=== PATIENT | male | born 1955 ===

== ENCOUNTER 2022-12-30 19:27 | Emergency (ER) | payer MEDICARE, OTHER, SELFPAY ==
[2022-12-30] MEDS: Dextrose 25 % 2.5 GM/10 ML SYRINGE 5 GM IVPUSH ×2 (19:33→20:44)
[2022-12-30 19:36] VITALS: BP 160/80; BP 165/76; PULSE 68; PULSE 78; RESP 17; TEMP 35; O2SAT 95; O2SAT 96; BMI 30.5
--- NOTE | 2022-12-30 19:41 | ECG_ITS ---
Test Reason : HYPOGLYCEMIA Blood Pressure : / mmHG Vent. Rate : 064 BPM Atrial Rate : 064 BPM P-R Int : 180 ms QRS Dur : 094 ms QT Int : 448 ms P-R-T Axes : 083 040 065 degrees QTc Int : 462 ms Normal sinus rhythm Normal ECG When compared with ECG of 30-OCT-2016 20:20, No significant change was found Referred By: Humza Hill Electronically Signed By:SAMEER PATEL MD
--- NOTE | 2022-12-30 19:42 | MHC.EDTECH ---
This Tech Assumed care of this PT @1926. EKG done and pt placed on radiation monitor. Pt changed into hospital gown. Pt was hypoglycemic upon arrival will check POC Q15 per P.A. next check @1951
--- NOTE | 2022-12-30 19:45 | ED_ITS ---
HPI - General Adult General Chief complaint: Altered Mental Status Stated complaint: Lethargic/ Low BS Time Seen by Provider: 12/30/22 20:18 Source: patient, RN notes reviewed and old records reviewed Mode of arrival: EMS Limitations: other (Patient initially unresponsive but responded to insulin D25) History of Present Illness HPI narrative: Patient arrives via EMS. Apparently he went to [employer] and then was found unresponsive on the floor. The patient arrives diaphoretic, point of care glucose of 35 Vital signs otherwise stable. Patient immediately responded to IV dextrose, D25 He reports the last thing he remembers was driving to [employer] He reports feeling ?tired. He denies any pain Related Data Allergies Allergy/AdvReac Type Severity Reaction Status Date / Time No Known Allergies Allergy Unverified 12/12/20 08:59 Review of Systems Constitutional: Constitutional: Denies chills, Denies fever(s) and Denies headache(s) ENT: Denies headache(s) Cardiovascular: Cardiovascular: Denies chest pain and Denies dyspnea Respiratory: Respiratory: Denies dyspnea Gastrointestinal: Gastrointestinal: Denies abdominal pain, Denies nausea and Denies vomiting Neurologic: Denies headache(s) [facility] Social History Social History (System 12/12/20 @ 08:59 by Lalitha Page) Smoked in Last 30 Days: No Use of substances other than those prescribed or required for medical reasons: No Advance Directives: No Advance Directives Information Provided: No Physical Exam ED Vital Signs: Vital Signs - 24 hr 12/30/22 19:36 12/30/22 20:41 12/30/22 20:58 Temperature 95.0 F L 97.5 F Pulse Rate 68 82 Respiratory Rate 17 16 Blood Pressure 165/76 H 189/75 H Pulse Oximetry 95 97 Oxygen Delivery Method Room Air Room Air BMI result Body Mass Index 30.5 Const General: healthy appearing, comfortable, no acute distress, alert and awake Nutritional Appearance: well nourished Orientation/consciousness: patient oriented x3 HENMT Head: Yes normocephalic and Yes atraumatic Eyes Eyelids: Yes eyelids normal Conjunctivae: conjunctivae normal Sclerae: sclerae normal Corneas: corneas normal Pupils: Equal, round and reactive pupils present EOM: EOMs intact bilaterally Neck Neck: Yes full ROM Resp Effort & Inspection: normal respiratory effort, able to speak in complete sentences, no audible wheezes and not labored Auscultation: clear to auscultation bilaterally Cardio Rate: regular rate Rhythm: regular rhythm GI Inspection: No distended Palpation (GI): Soft to palpation, not firm, nontender, no guarding and not rigid Auscultation: normoactive bowel sounds Skin General skin exam: no rashes or lesions noted and elasticity normal Neuro General: patient oriented x3 Cranial nerves: Yes CN's II-XII intact bilaterally, Yes Equal, round and reactive pupils present and Yes Bilaterally intact EOM present Cognition (Neuro): normal cognition Extrem Other: Moving all extremities well without any obvious deformities Course Course Course Narrative: 11:07 p.m. Patient's blood sugar now holding steady over 200, a increased from 195. The patient is stable for discharge. I would rather the patient go to sleep tonight slightly hyperglycemic then attempted to get his sugar back down to around 100. I advised the patient to not give himself any more insulin tonight the resume his normal scheduled tomorrow Reevaluation(s) Reevaluation #1: Patient's glucose was checked every 15 minutes initially and was 15 and then down to 86. Will again check in 15 minutes. The patient may require more dextrose Time: 20:15 Reevaluation #2: Repeat glucose found down to 50, he was given another 5 g of D25 Time: 20:39 Reevaluation #3: Patient re-evaluated, he is sitting up on reports feeling much better. He states that he went to dinner prior to going [employer]. He states that he forgot his testing CT with him so he believes he gave himself too much insulin as he was estimating why his sugar level was. Will check his blood sugar 1 more time an hour, and if he is holding he will be safe for discharge Time: 22:03 Medications Administered Discontinued Medications Generic Name Dose Route Start Last Admin Trade Name Lin PRN Reason Stop Dose Admin Dextrose 5 gm 12/30/22 19:33 12/30/22 19:33 Dextrose 25 % 2.5 Gm/10 Ml Syringe IVPUSH 12/30/22 19:34 5 gm ONCE ONE Administration Dextrose 5 gm 12/30/22 20:38 12/30/22 20:44 Dextrose 25 % 2.5 Gm/10 Ml Syringe IVPUSH 12/30/22 20:39 5 gm ONCE ONE Administration Medical Decision Making Medical Decision Making MDM Narrative: Though initially unresponsive, the patient responded quickly to insulin D25. Apparently there is a shortage of D50. I ordered D25, 5g. The patient's glucose on arrival was 35 and he was completely unresponsive. He awaken after few minutes and was able to confirm his 9 explain that he feels tired. He remembers driving to [employer] but nothing else afterwards. He denies any pain at this time. Will check basic labs, EKG is nonischemic. Will check point of care glucose acute 15 minutes until he is stabilized. I had suspended his insulin delivery while the patient was still unresponsive. I did not disconnect anything from his monitor. I explained to the patient I did suspend his de livery and did not recommend turning back on until tomorrow. I asked him to make sure it is functioning properly before turning it back on Differential Diagnosis Hypoglycemia CVA Syncope Arrhythmia Intracranial hemorrhage Lab Data 12/30/22 19:42 12/30/22 19:42 Labs: Lab Results 12/30/22 12/30/22 12/30/22 Range/Units 19:37 19:42 19:42 WBC 8.0 (4.8-10.8) X10*3/uL RBC 4.44 L (4.60-5.80) X10*6/uL Hgb 14.0 (14.0-18.0) g/dl Hct 41.0 L (42.0-52.0) % MCV 92.3 (80.0-98.0) fL MCH 31.5 (27.0-33.0) pg MCHC 34.1 (31.0-36.0) g/dl RDW 13.1 (11.0-16.0) % Plt Count 297 (160-400) X10*3/uL MPV 9.5 (9.4-12.4) fL Immature Gran % (Auto) 0.1 (0.0-0.4) % Neut % (Auto) 45.3 (45-73) % Lymph % (Auto) 37.7 (20-40) % [place] % (Auto) 11.1 H (2-11) % Eos % (Auto) 4.5 H (0-4) % Baso % (Auto) 1.3 (0-2) % Lymph # (Auto) 3.0 (1.2-4.9) X10*3/uL [place] # (Auto) 0.9 (0.1-1.2) X10*3/uL Eos # (Auto) 0.4 (0.0-0.4) X10*3/uL Baso # (Auto) 0.1 (0.0-0.2) X10*3/uL Abs Immat Gran (auto) 0.01 (0.00-0.03) X10*3/uL Absolute Neuts (auto) 3.6 (2.0-8.3) x10*3/uL Absolute Nucleated RBC 0.000 (0.0-0.012) X10*3/uL Nucleated RBC % (auto) 0.0 (0.0-0.2) /100WBC Sodium 141 (135-145) mmol/L Potassium 3.7 (3.3-5.1) mmol/L Chloride 103 (96-108) mmol/L Carbon Dioxide 30 H (22-29) mmol/L Anion Gap 12 (12-20) BUN 14 (9-16) mg/dL Creatinine 1.25 (0.5-1.4) mg/dL Estim Creat Clear Calc 66.8 Estimated GFR 58 POC Glucose 202 H (60-115) mg/dL Random Glucose 159 H (60-115) mg/dL Calcium 9.0 (8.4-10.2) mg/dL Total Bilirubin 0.6 (0.0-1.0) mg/dL AST 21 (5-37) U/L ALT 20 (0-40) U/L Alkaline Phosphatase 68 (39-117) U/L Total Protein 7.0 (6.5-8.0) g/dL Albumin 4.1 (3.5-5.0) g/dL Urine Color Urine Appearance Urine pH (5.0-9.0) Ur Specific [place] (1.005-1.025) Urine Protein (Neg-Trace) mg/dL Urine Glucose (UA) (Negative) mg/dL Urine Ketones (Negative) mg/dL Urine Blood (Negative) Urine Nitrite (Negative) Ur Leukocyte Esterase (Negative) Urine RBC (0-2) /HPF Urine WBC (0-5) /HPF Ur Squamous Epith Cells (0-2) /HPF Urine Bacteria (None Seen) Hyaline Casts (0-2) /LPF 12/30/22 12/30/22 12/30/22 Range/Units 19:53 20:11 20:34 WBC (4.8-10.8) X10*3/uL RBC (4.60-5.80) X10*6/uL Hgb (14.0-18.0) g/dl Hct (42.0-52.0) % MCV (80.0-98.0) fL MCH (27.0-33.0) pg MCHC (31.0-36.0) g/dl RDW (11.0-16.0) % Plt Count (160-400) X10*3/uL MPV (9.4-12.4) fL Immature Gran % (Auto) (0.0-0.4) % Neut % (Auto) (45-73) % Lymph % (Auto) (20-40) % [place] % (Auto) (2-11) % Eos % (Auto) (0-4) % Baso % (Auto) (0-2) % Lymph # (Auto) (1.2-4.9) X10*3/uL [place] # (Auto) (0.1-1.2) X10*3/uL Eos # (Auto) (0.0-0.4) X10*3/uL Baso # (Auto) (0.0-0.2) X10*3/uL Abs Immat Gran (auto) (0.00-0.03) X10*3/uL Absolute Neuts (auto) (2.0-8.3) x10*3/uL Absolute Nucleated RBC (0.0-0.012) X10*3/uL Nucleated RBC % (auto) (0.0-0.2) /100WBC Sodium (135-145) mmol/L Potassium (3.3-5.1) mmol/L Chloride (96-108) mmol/L Carbon Dioxide (22-29) mmol/L Anion Gap (12-20) BUN (9-16) mg/dL Creatinine (0.5-1.4) mg/dL Estim Creat Clear Calc Estimated GFR POC Glucose 155 H 86 51 L* (60-115) mg/dL Random Glucose (60-115) mg/dL Calcium (8.4-10.2) mg/dL Total Bilirubin (0.0-1.0) mg/dL AST (5-37) U/L ALT (0-40) U/L Alkaline Phosphatase (39-117) U/L Total Protein (6.5-8.0) g/dL Albumin (3.5-5.0) g/dL Urine Color Urine Appearance Urine pH (5.0-9.0) Ur Specific [place] (1.005-1.025) Urine Protein (Neg-Trace) mg/dL Urine Glucose (UA) (Negative) mg/dL Urine Ketones (Negative) mg/dL Urine Blood (Negative) Urine Nitrite (Negative) Ur Leukocyte Esterase (Negative) Urine RBC (0-2) /HPF Urine WBC (0-5) /HPF Ur Squamous Epith Cells (0-2) /HPF Urine Bacteria (None Seen) Hyaline Casts (0-2) /LPF 12/30/22 12/30/22 12/30/22 Range/Units 20:55 21:16 21:33 WBC (4.8-10.8) X10*3/uL RBC (4.60-5.80) X10*6/uL Hgb (14.0-18.0) g/dl Hct (42.0-52.0) % MCV (80.0-98.0) fL MCH (27.0-33.0) pg MCHC (31.0-36.0) g/dl RDW (11.0-16.0) % Plt Count (160-400) X10*3/uL MPV (9.4-12.4) fL Immature Gran % (Auto) (0.0-0.4) % Neut % (Auto) (45-73) % Lymph % (Auto) (20-40) % [place] % (Auto) (2-11) % Eos % (Auto) (0-4) % Baso % (Auto) (0-2) % Lymph # (Auto) (1.2-4.9) X10*3/uL [place] # (Auto) (0.1-1.2) X10*3/uL Eos # (Auto) (0.0-0.4) X10*3/uL Baso # (Auto) (0.0-0.2) X10*3/uL Abs Immat Gran (auto) (0.00-0.03) X10*3/uL Absolute Neuts (auto) (2.0-8.3) x10*3/uL Absolute Nucleated RBC (0.0-0.012) X10*3/uL Nucleated RBC % (auto) (0.0-0.2) /100WBC Sodium (135-145) mmol/L Potassium (3.3-5.1) mmol/L Chloride (96-108) mmol/L Carbon Dioxide (22-29) mmol/L Anion Gap (12-20) BUN (9-16) mg/dL Creatinine (0.5-1.4) mg/dL Estim Creat Clear Calc Estimated GFR POC Glucose 95 116 H (60-115) mg/dL Random Glucose (60-115) mg/dL Calcium (8.4-10.2) mg/dL Total Bilirubin (0.0-1.0) mg/dL AST (5-37) U/L ALT (0-40) U/L Alkaline Phosphatase (39-117) U/L Total Protein (6.5-8.0) g/dL Albumin (3.5-5.0) g/dL Urine Color Yellow Urine Appearance Clear Urine pH 8.0 (5.0-9.0) Ur Specific [place] 1.015 (1.005-1.025) Urine Protein 300 (3+) H (Neg-Trace) mg/dL Urine Glucose (UA) Negative (Negative) mg/dL Urine Ketones Negative (Negative) mg/dL Urine Blood Negative (Negative) Urine Nitrite Negative (Negative) Ur Leukocyte Esterase Negative (Negative) Urine RBC 0-2 (0-2) /HPF Urine WBC 0-5 (0-5) /HPF Ur Squamous Epith Cells 0-2 (0-2) /HPF Urine Bacteria None Seen (None Seen) Hyaline Casts 0-2 (0-2) /LPF 12/30/22 Range/Units 21:58 WBC (4.8-10.8) X10*3/uL RBC (4.60-5.80) X10*6/uL Hgb (14.0-18.0) g/dl Hct (42.0-52.0) % MCV (80.0-98.0) fL MCH (27.0-33.0) pg MCHC (31.0-36.0) g/dl RDW (11.0-16.0) % Plt Count (160-400) X10*3/uL MPV (9.4-12.4) fL Immature Gran % (Auto) (0.0-0.4) % Neut % (Auto) (45-73) % Lymph % (Auto) (20-40) % [place] % (Auto) (2-11) % Eos % (Auto) (0-4) % Baso % (Auto) (0-2) % Lymph # (Auto) (1.2-4.9) X10*3/uL [place] # (Auto) (0.1-1.2) X10*3/uL Eos # (Auto) (0.0-0.4) X10*3/uL Baso # (Auto) (0.0-0.2) X10*3/uL Abs Immat Gran (auto) (0.00-0.03) X10*3/uL Absolute Neuts (auto) (2.0-8.3) x10*3/uL Absolute Nucleated RBC (0.0-0.012) X10*3/uL Nucleated RBC % (auto) (0.0-0.2) /100WBC Sodium (135-145) mmol/L Potassium (3.3-5.1) mmol/L Chloride (96-108) mmol/L Carbon Dioxide (22-29) mmol/L Anion Gap (12-20) BUN (9-16) mg/dL Creatinine (0.5-1.4) mg/dL Estim Creat Clear Calc Estimated GFR POC Glucose 195 H (60-115) mg/dL Random Glucose (60-115) mg/dL Calcium (8.4-10.2) mg/dL Total Bilirubin (0.0-1.0) mg/dL AST (5-37) U/L ALT (0-40) U/L Alkaline Phosphatase (39-117) U/L Total Protein (6.5-8.0) g/dL Albumin (3.5-5.0) g/dL Urine Color Urine Appearance Urine pH (5.0-9.0) Ur Specific [place] (1.005-1.025) Urine Protein (Neg-Trace) mg/dL Urine Glucose (UA) (Negative) mg/dL Urine Ketones (Negative) mg/dL Urine Blood (Negative) Urine Nitrite (Negative) Ur Leukocyte Esterase (Negative) Urine RBC (0-2) /HPF Urine WBC (0-5) /HPF Ur Squamous Epith Cells (0-2) /HPF Urine Bacteria (None Seen) Hyaline Casts (0-2) /LPF Discharge Plan Discharge Clinical Impression: Hypoglycemia Patient Disposition: Home, Self-Care Instructions: Hypoglycemia in a Person with Diabetes (ED), What to Do if Your Blood Sugar is Low (ED) Additional Instructions: It is likely that you gave yourself too much insulin by accident Try to make sure your pump is working properly before you reconnect it Check your blood sugar right before bed
[2022-12-30 19:46] LABS: MANUAL DIFF FLAG NO
[2022-12-30 19:47] LABS: Basophils Absolute Auto 0.1 X10*3/uL (0.0-0.2); Basophils Percent Auto 1.3 % (0-2); Eosinophils Absolute Auto 0.4 X10*3/uL (0.0-0.4); Eosinophils Percent Auto 4.5 % (0-4); Imm Gran Abs Auto 0.01 X10*3/uL (0.00-0.03); Imm Gran Pct Auto 0.1 % (0.0-0.4); Lymphocytes Percent Auto 37.7 % (20-40); Mean Corpuscular HGB Conc 34.1 g/dl (31.0-36.0); Mean Corpuscular Hemoglobin 31.5 pg (27.0-33.0); Mean Corpuscular Volume 92.3 fL (80.0-98.0); Mean Platelet Volume 9.5 fL (9.4-12.4); Monocytes Absolute Auto 0.9 X10*3/uL (0.1-1.2); Monocytes Percent Auto 11.1 % (2-11); Neutrophils Absolute Auto 3.6 x10*3/uL (2.0-8.3); Neutrophils Percent Auto 45.3 % (45-73); Platelet Count 297 X10*3/uL (160-400); Red Blood Count 4.44 X10*6/uL (4.60-5.80); Red Cell Distribution Width 13.1 % (11.0-16.0)
[2022-12-30 19:59] LABS: Glucose, Whole Blood 202 mg/dL (60-115)
[2022-12-30 19:59] LABS: Glucose, Whole Blood 155 mg/dL (60-115)
--- NOTE | 2022-12-30 20:00 | PC.NURSE ---
this rn assumed care of pt @ 1936. rectal temp 95.0 pt placed on bear hugger. pt medicated according to oct. bilateral IV 18g R AC, 20g L AC. pt awake at this time
[2022-12-30 20:07] LABS: Alanine Aminotransferase 20 U/L (0-40); Albumin Level 4.1 g/dL (3.5-5.0); Alkaline Phosphatase 68 U/L (39-117); Anion Gap 12 (12-20); Aspartate Amino Transferase 21 U/L (5-37); Bilirubin Total 0.6 mg/dL (0.0-1.0); Blood Urea Nitrogen 14 mg/dL (9-16); Carbon Dioxide 30 mmol/L (22-29); Chloride 103 mmol/L (96-108); Creatinine Clr Calc Pharmacy 66.8; Estimated Glomerular Filt Rate 58; Glucose Random 159 mg/dL (60-115); Potassium 3.7 mmol/L (3.3-5.1); Sodium 141 mmol/L (135-145)
[2022-12-30 20:15] LABS: Glucose, Whole Blood 86 mg/dL (60-115)
[2022-12-30 20:41] VITALS: TEMP 36.4
[2022-12-30 20:52] LABS: Glucose, Whole Blood 51 mg/dL (60-115)
--- NOTE | 2022-12-30 20:56 | PC.NURSE ---
@ 2033 poc 51. ariel carpio made aware. pt given 5g ivp dextrose per ariel carpio orders. pt awake at this time. pt reports feeling improvement. poc q15 minutes per ariel carpio
[2022-12-30 20:58] VITALS: BP 189/75; PULSE 82; RESP 16; O2SAT 97
[2022-12-30 21:02] LABS: Glucose, Whole Blood 95 mg/dL (60-115)
[2022-12-30 21:38] LABS: Glucose, Whole Blood 116 mg/dL (60-115)
[2022-12-30 21:41] LABS: Appearance Urine Clear; Color Urine Yellow; Glucose Urine UA Negative (Negative); Leukocyte Esterase Urine Negative (Negative); Nitrite Urine Negative (Negative); Specific Gravity - Urine 1.015 (1.005-1.025); UMIC TRIGGER UACC YES; Urine Blood Negative (Negative); Urine Ketones Negative (Negative); Urine Protein 300 (3+) mg/dL (Neg-Trace)
[2022-12-30 21:43] LABS: Bacteria Urine None Seen (None Seen); Hyaline Casts Urine 0-2 /LPF (0-2); RBC Urine 0-2 /HPF (0-2); Squamous Epithelial Cell Urine 0-2 /HPF (0-2); WBC Urine 0-5 /HPF (0-5)
[2022-12-30 22:02] LABS: Glucose, Whole Blood 195 mg/dL (60-115)
--- NOTE | 2022-12-30 22:35 | PC.NURSE ---
pt a+o x4. pt calm and cooperative. resting on stretcher. disposition pending
[2022-12-30 23:07] LABS: Glucose, Whole Blood 228 mg/dL (60-115)
[2022-12-30 23:29] VITALS: BP 168/57; PULSE 97; RESP 16; TEMP 36.6; O2SAT 98
--- NOTE | 2022-12-30 23:50 | PC.NURSE ---
iv removed at discharge. vss. pt ambulatory at discharge. pt discharged with family member. pt provided with discharge packet. pt verbalized understanding of discharge plan
[2023-01-02 13:22] LABS: Glucose, Whole Blood 35 mg/dL (60-115)
== END 2022-12-30 23:50 | disposition home or self-care (01) ==
PROVIDERS: Physician Assistant; Emergency Provider Emergency Medicine; PCP Internal Medicine
DX: E11.649 Type 2 diabetes mellitus with hypoglycemia without coma (principal); R41.82 Altered mental status, unspecified; R07.89 Other chest pain; Z79.899 Other long term (current) drug therapy
CPT/HCPCS: 36415; 80053; 81001; 82947; 85025; 93005; 99284

== ENCOUNTER 2023-05-28 21:08 | Emergency (ER) | payer MEDICARE, OTHER, SELFPAY ==
--- NOTE | 2023-05-28 | ECG_ITS ---
Test Reason : NEAR SYNCOPE Blood Pressure : / mmHG Vent. Rate : 078 BPM Atrial Rate : 078 BPM P-R Int : 176 ms QRS Dur : 082 ms QT Int : 416 ms P-R-T Axes : 082 038 056 degrees QTc Int : 474 ms Normal sinus rhythm Normal ECG When compared with ECG of 30-DEC-2022 19:29, No significant change was found Referred By: Generic ED Physician Electronically Signed By:OBIE DUNAWAY MD
--- NOTE | 2023-05-28 21:18 | ED_ITS ---
HPI - Altered Mental Status General Chief Complaint: Dizziness Stated Complaint: AMS/Hypoglycemia Time Seen by Provider: 05/28/23 21:18 Source: patient Mode of arrival: ambulatory Limitations: no limitations History of Present Illness HPI narrative: Patient diabetic on insulin pump at 14:00 blood sugar was 128 lately patient been having less requirement of insulin as in the past no fever no chills was going for dinner with his friends supposed to have 18:00 got late for dinner was confused at the time of dinner friend gave him sweet candies and POC was 90 patient back to normal no chest pain or palpitation no injury no fever no chills no open wound no seizures Related Data Allergies Allergy/AdvReac Type Severity Reaction Status Date / Time No Known Allergies Allergy Unverified 12/12/20 08:59 Review of Systems 2 Review of Systems: Yes all other systems are reviewed and are negative [facility] Social History Social History (System 12/12/20 @ 08:59 by Lalitha Page) Alcohol intake: current Alcohol intake frequency: holidays/special occasions only Smoked in Last 30 Days: No Use of substances other than those prescribed or required for medical reasons: No Advance Directives: No Advance Directives Information Provided: No Physical Exam ED Vital Signs: Vital Signs - 24 hr 05/28/23 21:22 05/28/23 21:27 Temperature 97.7 F 97.7 F Pulse Rate 77 77 Respiratory Rate 22 H 19 Blood Pressure 193/77 H 193/70 H Pulse Oximetry 96 96 Oxygen Delivery Method Room Air Room Air BMI result Body Mass Index 30.1 Appearance: Alert. Oriented X3. No acute distress. Eyes: PERRLA, No Nystagmus ENT: Pharynx normal. Oral Mucosa moist Neck: Normal inspection. Neck supple. CVS: Normal heart rate and rhythm. Pulses normal. Respiratory: No respiratory distress. Equal air entry bilateral, no wheezing/rales/rhonchi Abdomen: Soft and nontender. Bowel sounds are present, no mass palpable, no CVA tenderness Skin: Skin warm and dry. Normal skin color. Normal skin turgor. Extremities: No lower extremity edema. No calf tenderness Neuro: Oriented X 3. No motor deficit. No sensory deficit.No cerebellar signs , cranial nerves II-XII intact Medical Decision Making Medical Decision Making MDM Narrative: Patient with transient hypoglycemia likely from decreased food intake on insulin pump patient sensorium improved no signs of significant infection noticed taking p.o. fluids discharge patient home PC was 155 Differential Diagnosis Differential Diagnoses: The differential diagnosis associated with the presentation includes Hypoglycemia secondary to insulin/infection Lab Data [facility] Lab Attestation statement: I reviewed the patient's lab results. 05/28/23 21:44 05/28/23 21:44 Labs: Lab Results 05/28/23 05/28/23 Range/Units 21:25 21:44 WBC 11.6 H (4.8-10.8) X10*3/uL RBC 4.45 L (4.60-5.80) X10*6/uL Hgb 13.9 L (14.0-18.0) g/dl Hct 41.2 L (42.0-52.0) % MCV 92.6 (80.0-98.0) fL MCH 31.2 (27.0-33.0) pg MCHC 33.7 (31.0-36.0) g/dl RDW 13.3 (11.0-16.0) % Plt Count 274 (160-400) X10*3/uL MPV 8.8 L (9.4-12.4) fL Absolute Nucleated RBC 0.000 (0.0-0.012) X10*3/uL Nucleated RBC % (auto) 0.0 (0.0-0.2) /100WBC Sodium 143 (135-145) mmol/L Potassium 4.4 (3.3-5.1) mmol/L Chloride 102 (96-108) mmol/L Carbon Dioxide 30 H (22-29) mmol/L Anion Gap 15 (12-20) BUN 18 H (9-16) mg/dL Creatinine 0.96 (0.5-1.4) mg/dL Estim Creat Clear Calc 86.4 Estimated GFR > 60 POC Glucose 128 H (60-115) mg/dL Random Glucose 155 H (60-115) mg/dL Calcium 9.5 (8.4-10.2) mg/dL Total Bilirubin 0.7 (0.0-1.0) mg/dL AST 23 (5-37) U/L ALT 20 (0-40) U/L Alkaline Phosphatase 66 (39-117) U/L Troponin I High Sens 8.4 (<3.5-35.0) ng/L Total Protein 7.7 (6.5-8.0) g/dL Albumin 4.3 (3.5-5.0) g/dL Urine Color Yellow Urine Appearance Clear Urine pH 6.5 (5.0-9.0) Ur Specific [place] 1.020 (1.005-1.025) Urine Protein 300 (3+) H (Neg-Trace) mg/dL Urine Glucose (UA) Negative (Negative) mg/dL Urine Ketones Negative (Negative) mg/dL Urine Blood Negative (Negative) Urine Nitrite Negative (Negative) Ur Leukocyte Esterase Negative (Negative) Urine RBC 3-5 H (0-2) /HPF Urine WBC 0-5 (0-5) /HPF Ur Squamous Epith Cells 3-5 (0-2) /HPF Urine Bacteria None Seen (None Seen) Hyaline Casts 6-10 (0-2) /LPF Independent Interpretation I performed an independent interpretation of an: EKG Interpretation: Normal sinus rhythm heart rate 78 beats per minute normal intervals normal axis no acute STT wave changes Discharge Plan Discharge Clinical Impression: Hypoglycemia associated with diabetes Patient Disposition: Home, Self-Care Instructions: Hypoglycemia in a Person with Diabetes (ED) Additional Instructions: Eat frequent meals Check your blood sugar more often Follow with PCP if any concerns Interventions: ED Discharge Assessment Last Done: 05/28/23 23:26 Discharge Date/Time: 05/28/23 23:26
[2023-05-28 21:22] VITALS: BP 193/77; PULSE 77; RESP 22; TEMP 36.5; O2SAT 96; BMI 30.1
[2023-05-28 21:27] VITALS: BP 193/70; PULSE 77; RESP 19; TEMP 36.5; O2SAT 96
[2023-05-28 21:48] LABS: Glucose, Whole Blood 128 mg/dL (60-115)
[2023-05-28 21:50] LABS: Hematocrit 41.2 % (42.0-52.0); Hemoglobin 13.9 g/dl (14.0-18.0); Mean Corpuscular HGB Conc 33.7 g/dl (31.0-36.0); Mean Corpuscular Hemoglobin 31.2 pg (27.0-33.0); Mean Corpuscular Volume 92.6 fL (80.0-98.0); Mean Platelet Volume 8.8 fL (9.4-12.4); Platelet Count 274 X10*3/uL (160-400); Red Blood Count 4.45 X10*6/uL (4.60-5.80); Red Cell Distribution Width 13.3 % (11.0-16.0); White Blood Count 11.6 X10*3/uL (4.8-10.8)
[2023-05-28 21:52] LABS: Appearance Urine Clear; Color Urine Yellow; Glucose Urine UA Negative (Negative); Leukocyte Esterase Urine Negative (Negative); Nitrite Urine Negative (Negative); PH 6.5 (5.0-9.0); UMIC TRIGGER UACC YES; Urine Blood Negative (Negative); Urine Ketones Negative (Negative); Urine Protein 300 (3+) mg/dL (Neg-Trace)
[2023-05-28 21:58] LABS: Bacteria Urine None Seen (None Seen); WBC Urine 0-5 /HPF (0-5)
[2023-05-28 22:05] LABS: Alanine Aminotransferase 20 U/L (0-40); Albumin Level 4.3 g/dL (3.5-5.0); Alkaline Phosphatase 66 U/L (39-117); Anion Gap 15 (12-20); Aspartate Amino Transferase 23 U/L (5-37); Bilirubin Total 0.7 mg/dL (0.0-1.0); Blood Urea Nitrogen 18 mg/dL (9-16); Calcium 9.5 mg/dL (8.4-10.2); Carbon Dioxide 30 mmol/L (22-29); Chloride 102 mmol/L (96-108); Creatinine Clr Calc Pharmacy 86.4; Estimated Glomerular Filt Rate > 60; Glucose Random 155 mg/dL (60-115); Potassium 4.4 mmol/L (3.3-5.1); Sodium 143 mmol/L (135-145); Total Protein 7.7 g/dL (6.5-8.0)
[2023-05-28 22:12] LABS: Troponin-I High Sensitivity 8.4 ng/L (<3.5-35.0)
== END 2023-05-28 23:26 | disposition home or self-care (01) ==
PROVIDERS: Emergency Provider Internal Medicine; PCP Internal Medicine
DX: R41.82 Altered mental status, unspecified (principal); E11.649 Type 2 diabetes mellitus with hypoglycemia without coma; Z96.41 Presence of insulin pump (external) (internal); Z79.4 Long term (current) use of insulin
CPT/HCPCS: 36415; 80053; 81001; 82947; 84484; 85027; 93005; 99283; 99285

== ENCOUNTER 2023-07-04 19:03 | Emergency (ER) | payer MEDICARE, OTHER, SELFPAY ==
[2023-07-04 19:16] VITALS: BP 132/51; PULSE 79; RESP 16; TEMP 37.2; O2SAT 100; BMI 16.9
--- NOTE | 2023-07-04 19:19 | ED.GENADULT ---
HPI - General Adult General Chief complaint: Recheck/Abnormal Lab/Rx Stated complaint: blood sugar of 500 Time Seen by Provider: 07/04/23 23:16 Source: patient Mode of arrival: ambulatory History of Present Illness HPI narrative: 67-year-old male who presents with concerns regarding a high blood sugar level and stating that he is unsure how much insulin he is given himself today. Although triage note states that patient has had vomiting for 3 days patient reports to me that he has had some mild nausea with an isolated episode of vomiting this morning with no other episodes. He does endorse recent vaccination on Saturday or influenza and COVID-19. Patient denies any sore throat/new cough, he denies any GI or symptoms. Related Data Allergies Allergy/AdvReac Type Severity Reaction Status Date / Time No Known Allergies Allergy Unverified 12/12/20 08:59 Review of Systems Review of Systems: Pertinent positives and negatives as stated in HPI [facility] Past Medical History Source: nursing notes reviewed Social History Social History Alcohol intake: current Alcohol intake frequency: does not drink Smoked in Last 30 Days: No Use of substances other than those prescribed or required for medical reasons: No Advance Directives: No Advance Directives Information Provided: Yes Physical Exam ED Vital Signs: Vital Signs - 24 hr 07/04/23 19:16 07/04/23 21:20 Temperature 98.9 F 98.6 F Pulse Rate 79 84 Respiratory Rate 16 16 Blood Pressure 132/51 L 142/53 H Pulse Oximetry 100 98 Oxygen Delivery Method Room Air Room Air BMI result Body Mass Index 16.9 VITAL SIGNS: Reviewed. GENERAL: Well developed, well nourished, in no acute distress. HEAD: Normocephalic/atraumatic EYES: PERRLA, EOMI EARS: Ext canals without abnormality, TMs non-bulging and non-erythematous NOSE: Nares patent bilateral OROPHARYNX: no oral lesions noted, posterior pharynx clear and non-erythematous without noted tonsillar enlargement/erythema/exudates NECK: Supple, no adenopathy LUNGS: Normal breath sounds. No adventitious sounds or accessory muscle use. SpO2<98> CARDIOVASCULAR: Regular rate and rhythm without noted murmurs ABDOMEN: Soft, non-tender, non-distended with bowel sounds. MUSCULOSKELETAL: No tenderness, deformities, or effusions noted on gross inspection. EXTREMITIES: No cyanosis, clubbing or edema. SKIN: Inspection of the skin reveals no rashes NEUROLOGIC: Alert and oriented x 4. Strength and sensation to light touch were grossly intact x 4. Course Course Course Narrative: This is a rapid medical exam: Additional HPI, ROS, PE not included below will be deferred to primary provider. Patient is a 67-year-old male with history of DM presenting to the emergency department with complaint of elevated blood glucose readings today, reports several readings around 500. Attempted to bolus himself with insulin without improvement. Vomited x 3 today, loose stools. Last POC was 528 at 18:20, took more insulin (novolog) at that time. Got flu vaccine a few days ago. Plan: labs, UA, EKG Medications Administered Discontinued Medications Generic Name Dose Route Start Last Admin Trade Name Freq PRN Reason Stop Dose Admin Sodium Chloride 1,000 mls @ 999 mls/hr 07/04/23 23:30 07/05/23 00:06 Ns IV 07/05/23 00:30 Not Given .Q1H1M [facility] Medical Decision Making Medical Decision Making MDM Narrative: 67-year-old male with history and clinical presentation for concerns regarding malfunctioning of his insulin pump. We did review the amount of insulin that he has administered for today and it would appear that his last self administration of a bolus was at 15:21 and was 11 units. Patient states that prior to this he had had a bowl of raising brand serial with orange juice and his sugar was 526 afterwards. Patient states that his basal insulin was changed due to the values consistently being low and he had been seen here previously for low blood sugar level. Patient otherwise appears well although anxious. I reviewed all investigations and hematologic indices are negative for leukocytosis or left shift consistent with clinical findings and history taking which does not indicate any infectious etiology. There is no thrombocytopenia and patient has a stable normocytic anemia. Chemistry indices do not demonstrate an MAKENNA and there is no electrolyte derangement although patient is noted to be hyperglycemic there are no clinical or laboratory findings to suggest DKA or HHS. Patient's repeat glucose as a point of care was noted to be 312. Beta hydroxybutyrate is 0.14. Urinalysis is negative for UTI or hematuria. Viral testing is negative for influenza/RSV/COVID. My interpretation is that patient has reasonable anxiety regarding his blood sugar levels, however there is no evidence that they are significantly deranged. His sugar level is resolving and I feel that he is a safe discharge to home. He was provided with strict return precautions and strongly encouraged to follow-up with his primary care provider as well as his outdoor adventure instructor by calling the office in the morning. Differential Diagnosis Differential Diagnoses: The differential diagnosis associated with the presentation includes Please see the discussion above Admission/Observation Consideration of admission/observation: Escalation of care including admission/observation considered Please see the discussion above Lab Data MDM Lab Attestation statement: I reviewed the patient's lab results. Please see the discussion above 07/04/23 19:41 07/04/23 19:41 Labs: Lab Results 07/04/23 07/04/23 Range/Units 19:41 23:48 WBC 9.0 (4.8-10.8) X10*3/uL RBC 3.89 L (4.60-5.80) X10*6/uL Hgb 12.2 L (14.0-18.0) g/dl Hct 35.2 L (42.0-52.0) % MCV 90.5 (80.0-98.0) fL MCH 31.4 (27.0-33.0) pg MCHC 34.7 (31.0-36.0) g/dl RDW 13.2 (11.0-16.0) % Plt Count 267 (160-400) X10*3/uL MPV 9.4 (9.4-12.4) fL Immature Gran % (Auto) 0.3 (0.0-0.4) % Neut % (Auto) 67.8 (45-73) % Lymph % (Auto) 15.1 L (20-40) % Casey % (Auto) 15.9 H (2-11) % Eos % (Auto) 0.1 (0-4) % Baso % (Auto) 0.8 (0-2) % Lymph # (Auto) 1.4 (1.2-4.9) X10*3/uL Casey # (Auto) 1.4 H (0.1-1.2) X10*3/uL Eos # (Auto) 0.0 (0.0-0.4) X10*3/uL Baso # (Auto) 0.1 (0.0-0.2) X10*3/uL Abs Immat Gran (auto) 0.03 (0.00-0.03) X10*3/uL Absolute Neuts (auto) 6.1 (2.0-8.3) x10*3/uL Absolute Nucleated RBC 0.000 (0.0-0.012) X10*3/uL Nucleated RBC % (auto) 0.0 (0.0-0.2) /100WBC Sodium 135 (135-145) mmol/L Potassium 4.0 (3.3-5.1) mmol/L Chloride 97 (96-108) mmol/L Carbon Dioxide 29 (22-29) mmol/L Anion Gap 13 (12-20) BUN 42 H (9-16) mg/dL Creatinine 1.37 (0.5-1.4) mg/dL Estim Creat Clear Calc 39.6 Estimated GFR 52 POC Glucose 312 H (60-115) mg/dL Random Glucose 461 H* (60-115) mg/dL Calcium 9.2 (8.4-10.2) mg/dL Total Bilirubin 0.9 (0.0-1.0) mg/dL AST 24 (5-37) U/L ALT 18 (0-40) U/L Alkaline Phosphatase 71 (39-117) U/L Total Protein 7.0 (6.5-8.0) g/dL Albumin 3.9 (3.5-5.0) g/dL Beta-Hydroxybutyrate 0.14 (0.02-0.27) mmol/L Influenza Type A (PCR) NEGATIVE (Negative) Influenza Type B (PCR) NEGATIVE (Negative) RSV RNA Qual (PCR) NEGATIVE (Negative) SARS-CoV-2 RNA (RT-PCR) NEGATIVE (Negative) Independent Interpretation I performed an independent interpretation of an: EKG Interpretation: Normal sinus rhythm, HR -80, there is no STEMI, SD/QRS/QTC is within normal limits. Chronic Conditions Patient?s care impacted by: Diabetes Critical Care Time Critical Care Time Critical Care Time: Yes Total Critical Care Time: 30 Attestation: I personally attest to this time spent taking care of the patient. Discharge Plan Discharge Clinical Impression: Hyperglycemia due to diabetes mellitus Patient Disposition: Home, Self-Care Instructions: Diabetic Hyperglycemia (ED) Additional Instructions: 1. Resume all home medications as prescribed. 2. It is going to be very important for you to follow-up with your outdoor adventure instructor 1st thing in the morning. Do not hesitate to return to the emergency room should you experience any worsening symptoms of nausea and vomiting. Referrals: Blayne Warren MD [Primary Care Provider] -
--- NOTE | 2023-07-04 19:21 | ECG_ITS ---
Test Reason : VOMITING Blood Pressure : / mmHG Vent. Rate : 080 BPM Atrial Rate : 080 BPM P-R Int : 206 ms QRS Dur : 094 ms QT Int : 404 ms P-R-T Axes : 079 045 065 degrees QTc Int : 465 ms Normal sinus rhythm Nonspecific ST and T wave abnormality Abnormal ECG When compared with ECG of 28-MAY-2023 21:25, No significant change was found Referred By: Ailyn Pete Electronically Signed By:SAMEER PATEL MD
[2023-07-04 19:47] LABS: MANUAL DIFF FLAG NO
[2023-07-04 19:50] LABS: Basophils Absolute Auto 0.1 X10*3/uL (0.0-0.2); Basophils Percent Auto 0.8 % (0-2); Eosinophils Percent Auto 0.1 % (0-4); Hematocrit 35.2 % (42.0-52.0); Hemoglobin 12.2 g/dl (14.0-18.0); Imm Gran Abs Auto 0.03 X10*3/uL (0.00-0.03); Imm Gran Pct Auto 0.3 % (0.0-0.4); Lymphocytes Absolute Auto 1.4 X10*3/uL (1.2-4.9); Lymphocytes Percent Auto 15.1 % (20-40); Mean Corpuscular HGB Conc 34.7 g/dl (31.0-36.0); Mean Corpuscular Hemoglobin 31.4 pg (27.0-33.0); Mean Corpuscular Volume 90.5 fL (80.0-98.0); Mean Platelet Volume 9.4 fL (9.4-12.4); Monocytes Absolute Auto 1.4 X10*3/uL (0.1-1.2); Monocytes Percent Auto 15.9 % (2-11); Neutrophils Absolute Auto 6.1 x10*3/uL (2.0-8.3); Neutrophils Percent Auto 67.8 % (45-73); Platelet Count 267 X10*3/uL (160-400); Red Blood Count 3.89 X10*6/uL (4.60-5.80); Red Cell Distribution Width 13.2 % (11.0-16.0)
[2023-07-04 20:09] LABS: Glucose Random 461 mg/dL (60-115)
[2023-07-04 20:10] LABS: Alanine Aminotransferase 18 U/L (0-40); Albumin Level 3.9 g/dL (3.5-5.0); Alkaline Phosphatase 71 U/L (39-117); Anion Gap 13 (12-20); Aspartate Amino Transferase 24 U/L (5-37); Bilirubin Total 0.9 mg/dL (0.0-1.0); Blood Urea Nitrogen 42 mg/dL (9-16); Calcium 9.2 mg/dL (8.4-10.2); Carbon Dioxide 29 mmol/L (22-29); Chloride 97 mmol/L (96-108); Creatinine Clr Calc Pharmacy 39.6; Estimated Glomerular Filt Rate 52; Sodium 135 mmol/L (135-145)
[2023-07-04 20:26] LABS: Influenza A PCR NEGATIVE (Negative); Influenza B PCR NEGATIVE (Negative); Resp Syncy Virus RNA Qual PCR NEGATIVE (Negative); SARS COV2 PCR INHOUSE NEGATIVE (Negative)
[2023-07-04 21:20] VITALS: BP 142/53; PULSE 84; RESP 16; TEMP 37; O2SAT 98
[2023-07-04 23:38] LABS: Beta-Hydroxybutyrate 0.14 mmol/L (0.02-0.27)
--- NOTE | 2023-07-04 23:49 | PC.NURSE ---
pt denies cp/sob/n/v/d at this time. pt denies hyperglycemic sx. poc 312 Dr. Pierce aware. awaiting on plan of care Dr. Pierce at bedside at this time.
[2023-07-04 23:52] LABS: Glucose, Whole Blood 312 mg/dL (60-115)
[2023-07-05 01:19] VITALS: BP 150/57; PULSE 79; RESP 16; O2SAT 95
== END 2023-07-05 01:20 | disposition home or self-care (01) ==
PROVIDERS: Registered Nurse Emergency; Emergency Provider Student in an Organized Health Care Education/Training Program; PCP Internal Medicine
DX: E11.65 Type 2 diabetes mellitus with hyperglycemia (principal); R94.31 Abnormal electrocardiogram [ECG] [EKG]; R79.89 Other specified abnormal findings of blood chemistry; Z20.822 Contact with and (suspected) exposure to COVID-19; Z20.828 Contact with and (suspected) exposure to other viral communicable diseases; Z79.899 Other long term (current) drug therapy
CPT/HCPCS: 0241U; 36415; 80053; 82010; 82947; 85025; 93005; 99283; 99284

== ENCOUNTER → 2023-07-04 19:21 | Outpatient (BNV) | payer MEDICARE, SELFPAY | PROVIDERS: Emergency Provider Student in an Organized Health Care Education/Training Program; PCP Internal Medicine; Visit Provider Internal Medicine Cardiovascular Disease | DX: R94.31 Abnormal electrocardiogram [ECG] [EKG] (principal) | CPT/HCPCS: 93010 ==

== ENCOUNTER 2024-07-19 21:41 | Emergency (ER) | payer MEDICARE, SELFPAY ==
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
--- OUTSIDE RECORDS SUMMARY | 2024-07-19 21:43 | XMS_ITS | Data Portability ---
Author Organization [facility] Address [address] [place] [address] Care Team Providers Care Curator Name Role Phone PRADEEP HALEY Primary Care Provider Assessment No assessment recorded. Plan of Treatment Reminders Order Date Submit Date Provider Last Modified By Organization Details Last Modified Time Details Appointments None recorded. Lab rapid flu (A+B) 2021 022 [email or web address] 1 _dalila amanda, [address] [place] [address], [phone], 18:48:24 rapid SARS CoV 2 Ag, QL IA, respiratory specimen 2021 022 [email or web address] 1 dalila amanda, [address] [place] [address], [phone], 18:48:24 Referral None recorded. Procedures None recorded. Surgeries None recorded. Imaging None recorded. Medication Orders None recorded. Patient TargetsNo targets recorded. Patient Instructions Encounter Date Encounter Id Patient Instructions Last Modified By Organization Details Last Modified Time 07/27/2022 [id number] upper respirator y infection (cold): care instructions [id number] Not available 07/27/2022 18:48:24 Reason for Referral None Reported. Results Created Date Observation Date Name Description Value Unit Range Abnormal Flag Note LastModifiedBy Organization Detail LastModifiedTime 07/27/2007/27/2022 rapid SARS CoV 2 Ag, QL IA, respi rator y speci men Unknown Analyte Normal =Negat lisa Not Available caro ferreira [address], [address], 07/27/2022 18:36:29 07/27/20 22 07/27/2022 rapid SARS CoV 2 Ag, QL IA, respi rator y speci men Unknown Analyte negati ve Not Available [address] [place] [address] [place], [address], 07/27/2022 18:36:29 07/27/20 22 07/27/2022 rapid flu (A+B) Unknown Analyte Normal = Negati ve Not Available [address] [place] [address], [place], [address], 07/27/2022 18:36:21 07/27/20 22 07/27/2022 rapid flu (A+B) Unknown Analyte Normal = Negati ve Not Available [address] [place] [address] [place], [address], 07/27/2022 18:36:21 07/27/20 22 07/27/2022 rapid flu (A+B) Unknown Analyte negati ve Not Available [address] [place] [address], [place], [address], 07/27/2022 18:36:21 07/27/20 22 07/27/2022 rapid flu (A+B) Unknown Analyte negati ve Not Available [address] [place] [address], [phone], 07/27/2022 18:36:21 Result Notes None recorded. Problems Name Problem SNOMED Code Status Onset Date Resolution Date Notes Provider Name and Address Organization Details Recorded Time Hyperlipidemia 19658272 Active 2021 [facility] 18:13:48 Hypertensive disorder 47241807 Active 2021 [facility] 18:14:04 Diabetes mellitus 70745692 Active 2021 MANUEL fox [place] - [facility] 2 18:14:10 Problem Notes None recorded. Procedures Surgical History Date Name Laterality Status Provider Name and Address Organization Details Recorded Time osteoplasty of clavicle completed MANUEL Thompson [facility] 07/27/2022 18:15:08 procedure on foot completed MANUEL EPSTEIN - [facility] 07/27/2022 18:15:18 Imaging Results None recorded. Procedure Notes None recorded. Medical Equipment None Reported. Allergies No known drug allergies Medications Name Sig Start Date Stop Date Status Note LastModified by Organization Details LastModified Time aspirin active Not Available Not Avail able Not Available lisinopril active Not Available Not Av ailable Not Available verapamil active Not Available Not Carolin ilable Not Available rosuvastatin active Not Available Not Available Not Available insulin aspart (niacinamide) active Not Available Not Availabl e Not Available Vitals Date Recorded Body height Body mass index (BMI) Body weight Body temperature Respiratory rate Heart rate Oxygen saturation Oxygen saturation in Arterial blood by Pulse oximetry Systolic blood pressure Diastolic blood pressure Provider Name and Address Organization Details Last Updated DateTime 2 177.8 cm 28.4 kg/m2 58287.2 9 g 99.7 [degF] 18 /min 95 /min 96 % 96 % 154 mm[Hg] 80 mm[Hg] MANUEL Thompson [facility] 2 18:17:46 Social History Question Answer Notes LastModified by Organizat ion Details LastModified Time Tobacco Smoking Status Never Smoker [facility] 07/27/2022 18:14:30 What Is Your Level Of Alcohol Consumption? None Information not available 07/27/2022 Are You Currently Employed? No Information not available 07/27/2022 Have You Had Direct Contact, Or Contact During Intimacy, With Monkeypox Rash, Scabs, Or Body Fluids From A Person With Monkeypox? No Information not available 07/27/2022 Do You Use Any Illicit Or Recreational Drugs? No Information not available 07/27/2022 Have You Recently Traveled Abroad? No Information not available 07/27/2022 Are You Currently In School? No Information not available 07/27/2022 Do You Or Have You Ever Used Any Other Forms Of Tobacco Or Nicotine? No Information not available 07/27/2022 Sex: Unknown Functional Status None recorded. Mental Status None recorded. Family History Relationship Description Onset Age of this Age Resolved Age Notes LastModified by Organization Details LastModified Time Father No current problems or disability Not available 07/06 18:14:19 Mother No current problems or disability Not available 07/06 18:14:19 Medical History No medical history recorded. Immunizations Vaccine Type Date Status Note Provider Nam e and Address Organization Details Recorded Time COVID-19, mRNA, LNP-S, PF, 30 mcg/0.3 mL dose 1 completed MANUEL MONAE null, [place] - [facility] 07/27/2022 18:11:41 COVID-19, mRNA, LNP-S, PF, 30 mcg/0.3 mL dose 1 completed MANUEL MONAE null, PA - [facility] 07/27/2022 18:11:41 Tdap 2 completed MANUEL MONAE null, PA - [facility] 07/27/2022 18:11:41 Influenza, split virus, trivalent, preservative 2 completed MANUEL MONAE null, PA - [facility] 07/27/2022 18:11:41 zoster recombinant 0 completed MANUEL MONAE null, PA - [facility] 07/27/2022 18:11:41 COVID-19, mRNA, LNP-S, bivalent, PF, 30 mcg/0.3 mL dose 2 completed MANUEL MONAE null, PA - [facility] 07/27/2022 18:11:41 COVID-19, mRNA, LNP-S, PF, 30 mcg/0.3 mL dose 1 completed MANUEL MONAE null, [place] - [facility] 07/27/2022 18:11:41 COVID-19, mRNA, LNP-S, PF, 30 mcg/0.3 mL dose, caryn-sucrose 2 completed MANUEL MONAE null, PA - [facility] 07/27/2022 18:11:41 Influenza, high-dose, quadrivalent, PF 1 completed MANUEL MONAE null, PA - [facility] 07/27/2022 18:11:41 Pneumococcal conjugate PCV 13 1 completed MANUEL MONAE null, [place] - [facility] 07/27/2022 18:11:41 COVID-19, mRNA, LNP-S, PF, 30 mcg/0.3 mL dose 1 completed MANUEL MONAE null, [place] - [facility] 07/27/2022 18:11:41 zoster recombinant 2 completed MANUEL MONAE null, PA - [facility] 07/27/2022 18:11:41 Past Encounters Encounter ID Performer Location Encounter Start Date Encounter Closed Date Diagnosis/Indication Diagnosis SNOMED-CT Code Diagnosis ICD10 Code [id number] [place] [address] [address] 07/27/2022 17:38:16 07/27/2022 18:49:37 Cough 37694102 R05.9 Upper resp iratory infection 05535511 J06.9 Health Concerns Section Related Observation LastModified by Organization Detai ls LastModified Time None Recorded Concern Status LastModified by Organization Details LastModified Time None Recorded Advance Directives Directive None Recorded Payers Encounter Date Sequence Insurance Name Policy Number Policy Velez Covered Member ID Velez Member ID Guarantor Name 07/27/2022 1 MEDICARE B-[place]: [employer] Facundo Amado [id number] Facundo Amado Notes Date Note Type Note Provider Name and Address Organization Details Recorded Time 07/27/2022 text/html CoughReported bypatient.Quality:d ry; intermittent Severity:improving Duration:4 days Timing:improving Modifying Factors:Cough Suppressant Associated Symptoms:no chills; no chest pain; no nausea; no vomiting; no wheezing started 4d ago with dry cough, runny nose, ST, felt warm - usually he recovers from colds the next day. ST lasted a day, feeling warm about a day. Runny nose resolved and cough mostly gone also. Wanted to make sure nothing more serious since this was lasting long for him. Taking tylenol, nyquil, and an expectorant during the day. NOEMY AVINA MD [address] [facility] [place], [address], [place] - [facility] 07/27/2022 18:49:44
[2024-07-19 21:44] VITALS: BP 189/66; PULSE 116; RESP 18; TEMP 36.6; O2SAT 96; BMI 30.7
[2024-07-19 22:03] LABS: Glucose, Whole Blood 417 mg/dL (60-115)
[2024-07-19 22:11] LABS: Basophils Absolute Auto 0.1 X10*3/uL (0.0-0.2); Basophils Percent Auto 0.9 % (0-2); Eosinophils Percent Auto 0.1 % (0-4); Hematocrit 39.3 % (42.0-52.0); Hemoglobin 13.4 g/dl (14.0-18.0); Imm Gran Abs Auto 0.03 X10*3/uL (0.00-0.03); Imm Gran Pct Auto 0.3 % (0.0-0.4); Lymphocytes Absolute Auto 0.4 X10*3/uL (1.2-4.9); Lymphocytes Percent Auto 4.1 % (20-40); MANUAL DIFF FLAG SCAN; Mean Corpuscular HGB Conc 34.1 g/dl (31.0-36.0); Mean Platelet Volume 9.5 fL (9.4-12.4); Monocytes Absolute Auto 0.5 X10*3/uL (0.1-1.2); Monocytes Percent Auto 4.1 % (2-11); Neutrophils Absolute Auto 9.8 x10*3/uL (2.0-8.3); Neutrophils Percent Auto 90.5 % (45-73); Platelet Count 337 X10*3/uL (160-400); Red Blood Count 4.32 X10*6/uL (4.60-5.80); Red Cell Distribution Width 13.8 % (11.0-16.0); SCAN SMEAR FLAG 1; White Blood Count 10.9 X10*3/uL (4.8-10.8)
--- NOTE | 2024-07-19 22:27 | ED.GENADULT ---
HPI - General Adult General Chief complaint: General Medical Stated complaint: high blood sugar Time Seen by Provider: 07/19/24 22:16 Source: patient Mode of arrival: ambulatory Limitations: no limitations History of Present Illness ED Provider: Dr. Leigha Campos HPI narrative: Patient comes to the emergency room complaining of high blood sugar. Patient states that he has a pump, refilled his psychiatrist yesterday, believes it is working properly. However, patient states that the only thing that he did different today was deep pancakes with a large amount of syrup. Patient states that he has not eaten since breakfast. Patient denies any recent URI or UTI symptoms. Denies fever chills. Patient complaining of nausea and vomiting, no abdominal pain, complaining of very dry mouth, polyuria and polydipsia. Related Data Allergies Allergy/AdvReac Type Severity Reaction Status Date / Time No Known Allergies Allergy Verified 07/19/24 21:49 Review of Systems Review of Systems: Constitutional : No Weight loss, No Fever, No Chills, No Night Sweats, No Fatigue, No Malaise ENT/Mouth : No Hearing loss, No Ear Pain, No Nasal Congestion, No Sinus Pain, No Hoarseness, No sore throat, No Rhinorrhea, No Swallowing Difficulty Eyes: No Eye Pain, No Swelling, No Redness, No Foreign Body, No Discharge, No Vision Changes Cardiovascular : No Chest Pain, No SOB, No Dyspnea on Exertion, No Orthopnea, No Edema, No Palpitations Respiratory : No Cough, No Sputum, No Wheezing, No Smoke Exposure, No Dyspnea Gastrointestinal : Complaining of nausea and vomiting, No Diarrhea, No Constipation, No abdominal Pain, No Hematochezia, No Melena Genitourinary : no irregular bleeding, No Dysuria, No Urinary Frequency, No Hematuria, No Urinary Incontinence, No Urgency, No Flank Pain, No Urinary Flow Changes, No Hesitancy Musculoskeletal : No joint pain, No Myalgias, No Joint Swelling Skin : No Skin Lesions, No rash Neuro : No Weakness, No Numbness, No Paresthesias, No Loss of Consciousness, No Dizziness, No Headache Psych : No Anxiety/Panic, No Depression, No SI/HI/AH/VH, No Social Issues, Heme/Lymph: No Bruising, No Bleeding,No Lymphadenopathy Endocrine : Complaining of polyuria polydipsia dry mouth high blood sugars PMFSH Past Medical History Medical History Diabetes type 2 Social History Social History Alcohol intake: current Alcohol intake frequency: holidays/special occasions only Alcohol type: beer and wine Smoked in Last 30 Days: No Use of substances other than those prescribed or required for medical reasons: No Advance Directives: No Advance Directives Information Provided: Yes Physical Exam ED Vital Signs: Vital Signs - 24 hr 07/19/24 21:44 07/19/24 23:35 07/19/24 23:51 Temperature 97.9 F Pulse Rate 116 H 113 H Respiratory Rate 18 18 Blood Pressure 189/66 H 186/70 H 193/75 H Pulse Oximetry 96 97 Oxygen Delivery Method Room Air Room Air 07/19/24 23:52 Temperature Pulse Rate 111 H Respiratory Rate Blood Pressure 193/75 H Pulse Oximetry Oxygen Delivery Method BMI result Body Mass Index 30.7 Const Other: Appearance: Alert. Oriented X3. Seems nauseous, dry heaving Eyes: Pupils equal, round and reactive to light. ENT: Pharynx normal. Very dry mouth Neck: Normal inspection. Neck supple. No lymph nodes noted. No crepitus CVS: Normal heart rate and rhythm. Pulses normal. Normal S1 and S2 Respiratory: No respiratory distress. Breath sounds normal. No Wheezing. No rales Abdomen: Soft and nontender. No rigidity. No distention. Skin: Skin warm and dry. Normal skin color. Normal skin turgor. Extremities: No lower extremity edema. No Lacerations. No Rash Neuro: Oriented X 3. No motor deficit. No sensory deficit. Moving all extremities. No slurred speech. CN 2 through 12 grossly intact Psych: calm, cooperative, normal affect Course Course Course Narrative: Patient states that he is only taking NovoLog 3 times a day, very high amount of insulin, 60 units in the morning, 40 at lunch time and about 40 at night. Patient states that he is not on a long-acting insulin for unclear reasons -at this time, patient receiving IV hydration and IV insulin. Zofran. Labs pending Medications Administered Discontinued Medications Generic Name Dose Route Start Last Admin Trade Name Freq PRN Reason Stop Dose Admin Sodium Chloride 2,000 mls @ 999 mls/hr 07/19/24 22:26 07/19/24 22:41 Ns IVCONT 07/20/24 00:26 999 mls/hr .Q2H1M ONE Administration Insulin Human Regular 10 unit 07/19/24 22:26 07/19/24 22:39 Insulin Regular, Human 100 Unit/Ml 10 Ml Vial IVPUSH 07/19/24 22:27 10 unit ONCE ONE Administration Insulin Human Regular 5 unit 07/19/24 23:45 07/19/24 23:56 Insulin Regular, Human 100 Unit/Ml 10 Ml Vial IVPUSH 07/19/24 23:46 5 unit ONCE ONE Administration Labetalol HCl 300 mg 07/19/24 23:46 07/19/24 23:52 Labetalol Hcl 100 Mg Tablet PO 07/19/24 23:47 300 mg ONCE ONE Administration Protocol Lisinopril 40 mg 07/19/24 23:47 07/19/24 23:51 Lisinopril 40 Mg Tablet PO 07/19/24 23:48 40 mg ONCE ONE Administration Protocol Ondansetron HCl 4 mg 07/19/24 22:26 07/19/24 22:40 Ondansetron Hcl 4 Mg/2 Ml Vial IVPUSH 07/19/24 22:27 4 mg ONCE ONE Administration Medical Decision Making Medical Decision Making MDM Narrative: Patient received 2 L IV fluids, 10 units of insulin. Patient's blood glucose improved to 355. Patient receiving additional 5 units of insulin, total of 15 now. My interpretation of labs: Patient hematology is at baseline, chemistry shows an elevated glucose of 458, at baseline BUN and creatinine. Closed anion gap, normal bicarb, normal blood pH Also, it was noted that patient's blood pressure is in the high 180s systolic. Patient has not been taking his medications today due to the nausea and vomiting. Patient takes 40 mg of lisinopril which she did not take and also 300 mg of p.o. labetalol b.i.d.. At this time, patient will receive a dose of lisinopril and labetalol p.o. Patient's blood glucose check is 287. Patient states that today was a 1 time incident, unclear what happened. No recent illnesses. Since this is an isolated incident, we will not change patient's medications, patient will call his christmas tree grower at [facility]. Also, I requested that the patient asked his christmas tree grower if long acting insulin would be beneficial for him. Differential Diagnosis Differential Diagnoses: The differential diagnosis associated with the presentation includes (Hyperglycemia, insulin pump failure, hypertension) Admission/Observation Consideration of admission/observation: Escalation of care including admission/observation considered (Given patient's elevated glucose and blood pressure, admission/observation was considered) Lab Data MDM Lab Attestation statement: I reviewed the patient's lab results. 07/19/24 21:59 07/19/24 21:59 Labs: Lab Results 07/19/24 07/19/24 07/19/24 Range/Units 21:53 21:58 21:59 WBC 10.9 H (4.8-10.8) X10*3/uL RBC 4.32 L (4.60-5.80) X10*6/uL Hgb 13.4 L (14.0-18.0) g/dl Hct 39.3 L (42.0-52.0) % MCV 91.0 (80.0-98.0) fL MCH 31.0 (27.0-33.0) pg MCHC 34.1 (31.0-36.0) g/dl RDW 13.8 (11.0-16.0) % Plt Count 337 D (160-400) X10*3/uL MPV 9.5 (9.4-12.4) fL Immature Gran % (Auto) 0.3 (0.0-0.4) % Neut % (Auto) 90.5 H (45-73) % Lymph % (Auto) 4.1 L (20-40) % [place] % (Auto) 4.1 (2-11) % Eos % (Auto) 0.1 (0-4) % Baso % (Auto) 0.9 (0-2) % Lymph # (Auto) 0.4 L (1.2-4.9) X10*3/uL [place] # (Auto) 0.5 (0.1-1.2) X10*3/uL Eos # (Auto) 0.0 (0.0-0.4) X10*3/uL Baso # (Auto) 0.1 (0.0-0.2) X10*3/uL Abs Immat Gran (auto) 0.03 (0.00-0.03) X10*3/uL Absolute Neuts (auto) 9.8 H (2.0-8.3) x10*3/uL Absolute Nucleated RBC 0.000 (0.0-0.012) X10*3/uL Nucleated RBC % (auto) 0.0 (0.0-0.2) /100WBC Smear Tech's Comments VERIFIED VBG pH (7.32-7.43) VBG pCO2 mmHg VBG pO2 mmHg VBG HCO3 (22-26) mmol/L VBG O2 Saturation % VBG Base Excess mmol/L Sodium 138 (135-145) mmol/L Potassium 4.5 (3.3-5.1) mmol/L Chloride 103 (96-108) mmol/L Carbon Dioxide 22 (22-29) mmol/L Anion Gap 18 (12-20) BUN 23 H (9-16) mg/dL Creatinine 1.20 (0.5-1.4) mg/dL Estim Creat Clear Calc 68.8 Estimated GFR > 60 POC Glucose 417 H* (60-115) mg/dL Random Glucose 458 H* (60-115) mg/dL Calcium 8.6 D (8.4-10.2) mg/dL Total Bilirubin 1.5 H (0.0-1.0) mg/dL AST 30 (5-37) U/L ALT 11 (0-40) U/L Alkaline Phosphatase 80 (39-117) U/L Total Protein 6.9 (6.5-8.0) g/dL Albumin 3.8 (3.5-5.0) g/dL Beta-Hydroxybutyrate 2.29 H (0.02-0.27) mmol/L Influenza Type A (PCR) NEGATIVE (Negative) Influenza Type B (PCR) NEGATIVE (Negative) RSV RNA Qual (PCR) NEGATIVE (Negative) SARS-CoV-2 RNA (RT-PCR) NEGATIVE (Negative) 07/19/24 07/19/24 07/20/24 Range/Units 22:38 23:31 00:32 WBC (4.8-10.8) X10*3/uL RBC (4.60-5.80) X10*6/uL Hgb (14.0-18.0) g/dl Hct (42.0-52.0) % MCV (80.0-98.0) fL MCH (27.0-33.0) pg MCHC (31.0-36.0) g/dl RDW (11.0-16.0) % Plt Count (160-400) X10*3/uL MPV (9.4-12.4) fL Immature Gran % (Auto) (0.0-0.4) % Neut % (Auto) (45-73) % Lymph % (Auto) (20-40) % Greenwood % (Auto) (2-11) % Eos % (Auto) (0-4) % Baso % (Auto) (0-2) % Lymph # (Auto) (1.2-4.9) X10*3/uL Greenwood # (Auto) (0.1-1.2) X10*3/uL Eos # (Auto) (0.0-0.4) X10*3/uL Baso # (Auto) (0.0-0.2) X10*3/uL Abs Immat Gran (auto) (0.00-0.03) X10*3/uL Absolute Neuts (auto) (2.0-8.3) x10*3/uL Absolute Nucleated RBC (0.0-0.012) X10*3/uL Nucleated RBC % (auto) (0.0-0.2) /100WBC Smear Tech's Comments VBG pH 7.37 (7.32-7.43) VBG pCO2 41 mmHg VBG pO2 81 mmHg VBG HCO3 24 (22-26) mmol/L VBG O2 Saturation 97.0 % VBG Base Excess -0.8 mmol/L Sodium (135-145) mmol/L Potassium (3.3-5.1) mmol/L Chloride (96-108) mmol/L Carbon Dioxide (22-29) mmol/L Anion Gap (12-20) BUN (9-16) mg/dL Creatinine (0.5-1.4) mg/dL Estim Creat Clear Calc Estimated GFR POC Glucose 355 H* 287 H (60-115) mg/dL Random Glucose (60-115) mg/dL Calcium (8.4-10.2) mg/dL Total Bilirubin (0.0-1.0) mg/dL AST (5-37) U/L ALT (0-40) U/L Alkaline Phosphatase (39-117) U/L Total Protein (6.5-8.0) g/dL Albumin (3.5-5.0) g/dL Beta-Hydroxybutyrate (0.02-0.27) mmol/L Influenza Type A (PCR) (Negative) Influenza Type B (PCR) (Negative) RSV RNA Qual (PCR) (Negative) SARS-CoV-2 RNA (RT-PCR) (Negative) Critical Care Time Critical Care Time Critical Care Time: Yes Total Critical Care Time: 60 Attestation: I have personally provided critical care time. Time includes review of lab data, radiology results, discussion with consultants, and monitoring for potential decompensation. Intervention performed as documented. Discharge Plan Discharge Clinical Impression: Hyperglycemia, Dehydration Patient Disposition: Home, Self-Care Instructions: Dehydration (ED), Diabetic Hyperglycemia (ED) Additional Instructions: Please follow-up with your primary care physician and christmas tree grower tomorrow. Please ask your christmas tree grower if long-acting insulin would be appropriate for you. If you have any worsening or new symptoms, please return to the emergency room or call 911 Print Language: South Sudanese
[2024-07-19 22:31] LABS: Alanine Aminotransferase 11 U/L (0-40); Albumin Level 3.8 g/dL (3.5-5.0); Alkaline Phosphatase 80 U/L (39-117); Anion Gap 18 (12-20); Aspartate Amino Transferase 30 U/L (5-37); Bilirubin Total 1.5 mg/dL (0.0-1.0); Blood Urea Nitrogen 23 mg/dL (9-16); Calcium 8.6 mg/dL (8.4-10.2); Carbon Dioxide 22 mmol/L (22-29); Chloride 103 mmol/L (96-108); Creatinine Clr Calc Pharmacy 68.8; Estimated Glomerular Filt Rate > 60; Glucose Random 458 mg/dL (60-115); Potassium 4.5 mmol/L (3.3-5.1); Sodium 138 mmol/L (135-145); Total Protein 6.9 g/dL (6.5-8.0)
[2024-07-19] MEDS: Insulin Regular, Human 100 UNIT/ML 10 ML VIAL 10 UNIT IVPUSH (22:39)
[2024-07-19] MEDS: ondansetron HCL 4 MG/2 ML VIAL IVPUSH (22:40)
[2024-07-19] MEDS: 0.9 % Sodium Chloride 2,000 ML 999 ML IVCONT (22:41)
[2024-07-19 22:43] LABS: VBG Base Excess -0.8 mmol/L; VBG HCO3 24 mmol/L (22-26); VBG pCO2 41 mmHg; VBG pH 7.37 (7.32-7.43); VBG pO2 81 mmHg
[2024-07-19 22:44] LABS: Venous Blood Gas Refer to POC result
[2024-07-19 22:45] LABS: Beta-Hydroxybutyrate 2.29 mmol/L (0.02-0.27)
[2024-07-19 22:46] LABS: Influenza A PCR NEGATIVE (Negative); Influenza B PCR NEGATIVE (Negative); Resp Syncy Virus RNA Qual PCR NEGATIVE (Negative); SARS COV2 PCR INHOUSE NEGATIVE (Negative)
--- NOTE | 2024-07-19 22:52 | PC.NURSE ---
Patient presented to ED for evaluation of uncontrolled/ high blood sugars since noon today, 4 episodes of vomiting since 17:00 and increase thirst. Last reading half hour prior to arrival to ED >500. Patient changed into hospital attire, 20 G IV line established in [facility], labs drawn and sent to lab. Patient reports he has insulin pump, Dr. Campos made aware, insulin pump turned off per MD order. Patient medicated with Zofran 4 mg IV, [id number] insulin 10 units IV, IVF started and infusing without issues. Patient currently resting in stretcher bed with spouse at bedside, call hendricks in patient's reach.
[2024-07-19 22:55] LABS: SLIDE REVIEW VERIFIED
[2024-07-19 23:35] VITALS: BP 186/70; PULSE 113; RESP 18; O2SAT 97
[2024-07-19 23:44] LABS: Glucose, Whole Blood 355 mg/dL (60-115)
[2024-07-19 23:51] VITALS: BP 193/75
[2024-07-19] MEDS: lisinopriL 40 MG TABLET PO (23:51)
[2024-07-19 23:52] VITALS: BP 193/75; PULSE 111
[2024-07-19] MEDS: Labetalol HCL 100 MG TABLET 300 MG PO (23:52)
[2024-07-19] MEDS: Insulin Regular, Human 100 UNIT/ML 10 ML VIAL IVPUSH (23:56)
[2024-07-20 00:38] LABS: Glucose, Whole Blood 287 mg/dL (60-115)
[2024-07-20 01:00] VITALS: BP 142/60; PULSE 92; RESP 16; TEMP 37; O2SAT 98
[2024-07-20] MEDS: Insulin Regular, Human 100 UNIT/ML 10 ML VIAL IVPUSH (01:10)
[2024-07-20 01:19] LABS: Glucose, Whole Blood 318 mg/dL (60-115)
[2024-07-20 01:59] LABS: Glucose, Whole Blood 281 mg/dL (60-115)
[2024-07-20 02:19] VITALS: BP 140/69; PULSE 89; RESP 16; TEMP 36.7; O2SAT 98
== END 2024-07-20 02:21 | disposition home or self-care (01) ==
PROVIDERS: Emergency Provider Emergency Medicine; PCP Internal Medicine
DX: E11.65 Type 2 diabetes mellitus with hyperglycemia (principal); E86.0 Dehydration; R11.2 Nausea with vomiting, unspecified; Z03.818 Encounter for observation for suspected exposure to other biological agents ruled out; Z79.899 Other long term (current) drug therapy; Z79.4 Long term (current) use of insulin
CPT/HCPCS: 0241U; 36415; 80053; 82010; 82803; 82947; 85025; 96361; 96374; 96375; 99285; J2405

== ENCOUNTER 2024-07-20 11:00 | Inpatient (IN) | payer MEDICARE, OTHER, SELFPAY ==
[2024-07-20] VITALS (7 sets, daily range): BP systolic 117–140; BP diastolic 45–65; PULSE 80–89; RESP 16–18; TEMP 36.1–36.9; O2SAT 94–98; BMI 30.7; BMI 31.0
--- NOTE | ~2024-07-20 | XR_ITS ---
EXAMINATION: XR CHEST CLINICAL INFORMATION: cough COMPARISON: 10/22/2016. TECHNIQUE: 2 views of the chest were obtained. FINDINGS: The cardiac, hilar, and mediastinal contours are normal. Lungs are somewhat hyperaerated, however clear bilaterally. No consolidations, effusions, or pneumothorax. Plate and screw fixation of the left clavicle. Remainder of the soft tissue and bony structures demonstrate no acute abnormalities. Mild spinal degenerative changes and scoliosis. XR/XR chest 2V IMPRESSION: No active pulmonary disease. Hyperaerated lung parenchyma. No change. Electronically signed by: Nick Salmeron MD 07/20/2024 01:18 PM [facility]
--- OUTSIDE RECORDS SUMMARY | 2024-07-20 11:05 | XMS_ITS | Patient Health Record ---
Author Organization [facility] [place] Address [address] [place] [address] Care Team Providers Care Electrician Station Assistant Name Role Phone Blayne Warren MD Primary Care Provider Calixto Farfan Unavailable [phone] Allergies No Known Allergies Results Component Value Reference Range Notes HEMOGLOBIN A1C (GLYCOHEMOGLO BIN) Reviewed date:08/07/2023 09:40:59 AM Interpretation: Performing Lab: Notes/Report: HEMOGLOBIN A1C (GLYCOHEMOGLO BIN) Reviewed date:10/29/2023 08:46:28 AM Interpretation: Performing Lab: Notes/Report: HEMOGLOBIN A1C % (HH) 6.3 Reason For Referral No Information Medications Medication SIG (Take, Route, Frequency, Duration) Notes Start Date End Date Status Lantus Active Fish Oil Active Lantus SoloStar Not- Taking Crestor 20 MG Orally Active Insulin Not-Taking Labetalol HCl Active Furosemide 40 MG 1 tablet Orally Once a day Active Multivitamin Active Lisinopril Active Saw [place] Active NovoLOG Active Verapamil HCl Active Atorvastatin [...] Problem Acquired hammer toe of right foot (949039496959706 5) Other hammer toe(s) (acquired), right foot (M20.41) Active confirmed Problem Acquired hammer toe of left foot (549639940634699 3) Other hammer toe(s) (acquired), left foot (M20.42) Active confirmed Problem Peripheral circulatory disorder associated with type 1 diabetes mellitus (279766980) Type 1 diabetes mellitus with diabetic peripheral angiopathy without gangrene (E10.51) Active confirmed Vital Signs Height 2sz68ur in 06/26/2024 Weight 210 lbs 06/26/2024 BMI 30.13 kg/m2 06/26/2024 Procedures Procedure Date Ordered Date Performed Result Body Sit e 90199-ATTFURI NAIL, 6 OR MORE 08/07/2023 N/A 15738-IKBJ SKIN LESIONS, 2 TO 4 08/07/2023 N/A 77381-BKRXKBH NAIL, 6 OR MORE 10/29/2023 N/A 01332-OBIP SKIN LESIONS, 2 TO 4 10/29/2023 N/A 69506-XCNPABC NAIL, 6 OR MORE 01/20/2024 N/A 73724-MRUX SKIN LESIONS, 2 TO 4 01/20/2024 N/A 91786-ETZLSIE NAIL, 6 OR MORE 03/31/2024 N/A 71769-MIEI SKIN LESIONS, 2 TO 4 03/31/2024 N/A 42134-NKHXQWD NAIL, 6 OR MORE 06/26/2024 N/A 34154-CLWS SKIN LESIONS, 2 TO 4 06/26/2024 N/A Encounters Encounter Location Date Provider Diagnosis [address] [address] 08/07/2023 Calixto Kae Type 1 diabetes mellitus with diabetic peripheral angiopathy without gangrene E10.51 ; Tinea unguium B35.1 ; Pain in right toe(s) M79.674 ; Pain in left toe(s) M79.675 and Tinea pedis of both feet B35.[address] [address] 10/29/2023 Calixtoestefani PersonKae Type 1 diabetes mellitus with diabetic peripheral angiopathy without gangrene E10.51 ; Tinea unguium B35.1 ; Pain in right toe(s) M79.674 ; Pain in left toe(s) M79.675 and Tinea pedis of both feet B35.[address] [address] 01/20/2024 Calixto Kae Type 1 diabetes mellitus with diabetic peripheral angiopathy without gangrene E10.51 ; Tinea unguium B35.1 ; Pain in right toe(s) M79.674 and Pain in left toe(s) M79.[address] [address] 03/31/2024 Calixto Kae Type 1 diabetes mellitus with diabetic peripheral angiopathy without gangrene E10.51 ; Tinea unguium B35.1 ; Pain in right toe(s) M79.674 ; Pain in left toe(s) M79.675 ; Other hammer toe(s) (acquired), right foot M20.41 and Other hammer toe(s) (acquired), left foot M20.[address] [address] 06/26/2024 Calixto Kae Type 1 diabetes mellitus with diabetic peripheral angiopathy without gangrene E10.51 ; Tinea unguium B35.1 ; Pain in right toe(s) M79.674 and Pain in left toe(s) M79.675 [facility] [address] [address] 01/14/2024 Calixto Pal Assessments Encounter Date Diagnosis [...] X ray : Foot, right 3V 08/17/2011 85085-FKJEZTI NAIL, 6 OR MORE 12/04/2011 90576-OFRVGUH NAIL, 6 OR MORE 04/28/2013 10564-QRDUATJ NAIL, 6 OR MORE 12/01/2013 73078-AWPDQZN NAIL, 6 OR MORE 02/19/2014 94589-FXLQMWJ NAIL, 6 OR MORE 05/11/2011 19110-GHGAUMZ NAIL, 6 OR MORE 08/17/2011 66178-EFSHCSA NAIL, 6 OR MORE 03/14/2012 39011-UGLGYPB NAIL, 6 OR MORE 06/13/2012 84266-DCVJCDF NAIL, 6 OR MORE 09/26/2012 40343-PPRJAPQ NAIL, 6 OR MORE 01/16/2013 62406-TWUUAEL NAIL, 6 OR MORE 09/23/2015 58815-VYIUFLY NAIL, 6 OR MORE 12/30/2015 50710-BFMYRHZ NAIL, 6 OR MORE 03/09/2016 14895-RMOXRVW NAIL, 6 OR MORE 06/12/2016 97034-RUIWTAV NAIL, 6 OR MORE 09/14/2016 90280-PBFUDOM NAIL, 6 OR MORE 12/18/2016 80038-SYHWFDJ NAIL, 6 OR MORE 04/19/2017 52063-SHWXCQK NAIL, 6 OR MORE 07/19/2017 25312-FJPAWZB NAIL, 6 OR MORE 10/29/2017 07000-CFBAAGU NAIL, 6 OR MORE 01/31/2018 46790-BRGGBZG NAIL, 6 OR MORE 04/25/2018 21439-WOTUGBL NAIL, 6 OR MORE 07/18/2018 48116-ZVISEAM NAIL, 6 OR MORE 10/24/2018 44671-PVMKFPY NAIL, 6 OR MORE 01/16/2019 67800-WAHZYUD NAIL, 6 OR MORE 05/01/2019 65786-JQMNVCJ NAIL, 6 OR MORE 08/21/2019 36764-YKTZBXO NAIL, 6 OR MORE 11/24/2019 31758-BSZSUEP NAIL, 6 OR MORE 02/19/2020 44768-KXVDGFV NAIL, 6 OR MORE 06/23/2020 26612-IJGQIOJ NAIL, 6 OR MORE 2020 69540-EZCOVDQ NAIL, 6 OR MORE 12/16/2020 37620-LECYDEN NAIL, 6 OR MORE 03/17/2021 94153-ACBEBIW NAIL, 6 OR MORE 06/23/2021 63495-ARUYPEU NAIL, 6 OR MORE 09/15/2021 53051-WLAKMVC NAIL, 6 OR MORE 12/01/2021 40203-GPMZEOZ NAIL, 6 OR MORE 02/16/2022 34301-ZHNLXWI NAIL, 6 OR MORE 05/04/2022 00016-PITFLNL NAIL, 6 OR MORE 07/13/2022 94885-CGDHAEU NAIL, 6 OR MORE 09/28/2022 30105-KUVPYBZ NAIL, 6 OR MORE 05/28/2014 63843-GHGUNMQ NAIL, 6 OR MORE 09/03/2014 62157-NWELZAL NAIL, 6 OR MORE 12/03/2014 44898-GBLEXNG NAIL, 6 OR MORE 03/08/2015 01264-QVGMDUN NAIL, 6 OR MORE 12/21/2022 38241-HIGRLEY NAIL, 6 OR MORE 03/15/2023 74775-LKSMWFK NAIL, 6 OR MORE 05/22/2023 33436-KOTVHTL NAIL, 6 OR MORE 08/07/2023 34837-GUJIHSK NAIL, 6 OR MORE 10/29/2023 07000-RRHFJSC NAIL, 6 OR MORE 01/20/2024 59137-AIRNFPC NAIL, 6 OR MORE 03/31/2024 25078-MZIGNVQ NAIL, 6 OR MORE 06/26/2024 43394-Roir Destruction, 1-14 05/11/2011 81259-Fksg Destruction, 1-14 08/17/2011 00666-Fsiwymxp Plate 01/16/2013 13479-Kiehpwsi Plate 12/04/2011 92338 I&D ABSCESS- SIMPLE,SINGLE 013 72909 I&D ABSCESS- SIMPLE,SINGLE 014 03526 I&D ABSCESS- SIMPLE,SINGLE 014 09462 I&D ABSCESS- SIMPLE,SINGLE 015 44227 I&D ABSCESS- SIMPLE,SINGLE 015 63665 I&D ABSCESS- SIMPLE,SINGLE 014 63516-ZXGT SKIN LESIONS, 2 TO 4 12/22/19 09769-REPT SKIN LESIONS, 2 TO 4 10/29/19 24 94826-FZVU SKIN LESIONS, 2 TO 4 08/07/19 71979-OPEE SKIN LESIONS, 2 TO 4 05/22/20 71472-UIJX SKIN LESIONS, 2 TO 4 03/15/20 51732-BNKI SKIN LESIONS, 2 TO 4 06/26/20 24 42186-JPPO SKIN LESIONS, 2 TO 4 03/31/20 24 27862-KCDD SKIN LESIONS, 2 TO 4 01/20/20 24 47361-ZALT SKIN LESIONS, 2 TO 4 09/28/19 Next Appt Details Provider Name:Calixto Pal , 10/02/2024 09:00:00 AM, [address] [place], [address], Insurance Providers Payer Name Payer Address Payer Phone Subscriber Number Group Number Insured Name Patient Relationship to Insured Coverage Start Date Coverage End Date Medicare National [employer] [address] [place] [address] [id number] Facundo Amado Self - patient is the insured [address] [facility] [address] [facility] [place] [address] [phone] [id number] Facundo Amado Self - patient is the [...] [facility] BS [facility] Patient admitted to [facility]. DX- high b lood pressure [id number]
--- OUTSIDE RECORDS SUMMARY | 2024-07-20 11:05 | XMS_ITS ---
Author Organization [facility] [place] Address [address] [place] [address] Care Team Providers Care Electric Relay Tester Name Role Phone Blayne Warren MD Primary Care Provider Calixto Farfan Unavailable [phone] Allergies No Known Allergies REASON FOR VISIT At Risk Footcare, Painful Nail(s) aggrevated by shoes and causing difficulty standing/walking Medications Medication SIG (Take, Route, Frequency, Duration) Notes Start Date End Date Status Lantus SoloStar Not- Taking Crestor 20 MG Orally Active Lantus Active Atorvastatin Calcium Active Aspirin Active Insulin Not-Taking Saw [place] Active Verapamil HCl Active Extra Depth Orthopedic [...] other tobacco user? No Vital Signs Height 5ys47kh in 06/26/2024 Weight 210 lbs 06/26/2024 BMI 30.13 kg/m2 06/26/2024 Procedures Procedure Date Ordered Date Performed Result Body Sit e 40833-SGHHETK NAIL, 6 OR MORE 06/26/2024 N/A 38758-GOLQ SKIN LESIONS, 2 TO 4 06/26/2024 N/A Encounters Encounter Location Date Provider Diagnosis [facility] [place] [address] [place] [address] 06/26/2024 Calixto Kae Type 1 diabetes mellitus [...] Treatment Pending Test Test Name Order Date 24220-OZYTRLS NAIL, 6 OR MORE 06/26/2024 11144-TJIB SKIN LESIONS, 2 TO 4 06/26/20 24 Next Appt Details Follow Up: prn, Reason: Provider Name:Calixto Personunier , 10/02/2024 09:00:00 AM, [address] [place], [address], Procedure Notes * Category Sub-Category Detail Notes [...] use of a nail nipper and/or dremel-type grinder mill operator, to a more viable healthy nail plate [...] to maintain effectiveness in symptomatic relief - 91756 Keratoma Treatment Parring or Cutting o f Benign Hyperkeratotic Lesion(s) (-56) 2-4 Lesions - The Benign hyperkeratotic lesions, ( 4) in total, locations as stated and described in exam, were pared, and/or cut utilizing a sterile 15 blade, tissue nippers, and/or power dremel instrumentation - 82251, Q8 Progress Notes * Facundo MOYER IIDOB:1955 (68 yo M)Acc No.[id number]:06/26/2024 Progress Note Patient:?Facundo MOYER II Provider:?Calixto Pal DPM :1955???Age:68 Y???Sex:Male Misbah e:06/26/2024 Address:[address] [place], [place] [id number] Pcp:Blayne Warren MD Subjective: * Chief Complaints: [...] * Hospitalization/Major Diagno stic Procedure:?Patient admitted to [facility]. DX- high blood pressure [facility] low [...] day Labetalol HCl Lisinopril Multivitamin NovoLOG Saw [place] Verapamil HCl Ciclopirox Olamine 0.77 % Cream [...] Lisinopril Taking Multivitamin Taking NovoLOG Taking Saw [place] Taking Verapamil HCl Taking Ciclopirox Olamine 0.77 [...] patient * Allergies:?N.K.D.A.yes[Aller gies Verified] Objective: * Vitals:?Ht:0ym72rm, Wt:210, BMI:30.13, Shoe size:10-10.5N, BS:106, Ht-cm: 177.8 [...] - M79.675??? Plan: * Treatment: 2.?Tinea unguium?Procedure: 02614-DRVVWWO NAIL, 6 OR MORE * Procedures:?Debride Nail [...] use of a nail nipper and/or dremel-type grinder mill operator, to a more viable healthy nail plate [...] to maintain effectiveness in symptomatic relief - 88771.?Keratoma Treatment:?Parring or Cutting of Benign Hyperkeratotic Lesion(s)?(-56) 2-4 Lesions - The Benign hyperkeratotic lesions, ( 4) in total, locations as stated and described in exam, were pared, and/or cut utilizing a sterile 15 blade, tissue nippers, and/or power dremel instrumentation - 21539, Q8.? * Procedure Codes:?39036 DEBRI DE NAIL, 6 OR MORE, Modifiers: XS 49655 TRIM SKIN LESIONS, 2 TO 4, Modifiers: XS , Q8 * Follow Up:?prn * Images: * Sign off status: Completed true * Provider:?Calixto Pal DPM Date:?2023 Generated for Oswaldo roes/Alia/Semaj on:?07/20/2024 11:04 AM EST History and Physical Notes * HPI [...]
--- OUTSIDE RECORDS SUMMARY | 2024-07-20 11:05 | XMS_ITS ---
Author Organization [facility] [place] Address [address] [place] [address] Care Team Providers Care Account Support Rep Name Role Phone Blayne Warren MD Primary Care Provider Calixto Farfan Unavailable [phone] Allergies No Known Allergies REASON FOR VISIT At Risk Footcare, Painful Nail(s) aggrevated by shoes and causing difficulty standing/walking, Toe Irritation Medications Medication SIG (Take, Route, Frequency, Duration) Notes Start Date End Date Status Lisinopril Active Multivitamin Active NovoLOG Active Saw [place] Active Verapamil HCl Active Crestor 20 MG [...] other tobacco user? No Vital Signs Height 6kh51ep in 03/31/2024 Weight 210 lbs 03/31/2024 BMI 30.13 kg/m2 03/31/2024 Procedures Procedure Date Ordered Date Performed Result Body Sit e 40025-OSYKWQS NAIL, 6 OR MORE 03/31/2024 N/A 51943-CQNX SKIN LESIONS, 2 TO 4 03/31/2024 N/A Encounters Encounter Location Date Provider Diagnosis [facility] [place] [address] [place] [address] 03/31/2024 Calixto Personunier Type 1 diabetes mellitus [...] INSTRUCTIONS.pdf) Pending Test Test Name Order Date 21337-HWSWRUZ NAIL, 6 OR MORE 03/31/2024 37742-OMJT SKIN LESIONS, 2 TO 4 03/31/20 24 Next Appt Details Follow Up: prn, Reason: Provider Name:Calixto Pal , 10/02/2024 09:00:00 AM, [address] [place] [address], [address], Procedure Notes * Category Sub-Category Detail Notes Debride Nail 6-10 Nail debridement Performance o f this nail treatment by a nonprofessional would put this patients foot and overall health at risk. Therefore, nail debridement was performed extensively to reduce/remove overall nail length, girth, thickness, subungual debris, and necrotic tissue, by manual and/or electrical means through the use of a nail nipper and/or dremel-type slab grinder, to a more viable healthy nail plate or bed tissue 6-10. Silver nitrate used for any petechial bleeding as necessary. Definitive antifungal treatment options have been reviewed and discussed with the patient. The patient chooses, no pharmaceutical tx (57437) Keratoma Treatment Parring or Cutting o f Benign Hyperkeratotic Lesion(s) 89610 (2-4 Lesions) - The Benign hyperkeratotic lesions, as described above were pared, and/or cut utilizing a sterile #15 blade, tissue nippers, and/or dremel, Q8 Progress Notes * Facundo MOYER IIDOB:1955 (68 yo M)Acc No.[id number]:03/31/2024 Progress Note Patient:?Facundo Moyer Provider:?Calixto Pal DPM :1955???Age:68 Y???Sex:Male Misbah e:03/31/2024 Address:[address] [place], [place] [id number] Pcp:Blayne Warren MD Subjective: * Chief Complaints: [...] * Hospitalization/Major Diagno stic Procedure:?Patient admitted to [facility]. DX- high blood pressure 04309013ARL low BS 12/19/2015[facility]- [...] a dayLabetalol HCl Lisinopril Multivitamin NovoLOG Saw [place] Verapamil HCl Ciclopirox Olamine 0.77 % Cream 1 application Externally Twice a dayTaking Aspirin Taking Atorvastatin Calcium Taking Crestor 20 MG Tablet Orally Taking Fish Oil Taking Furosemide 40 MG Tablet 1 tablet Orally Once a dayTaking Labetalol HCl Taking Lisinopril Taking Multivitamin Taking NovoLOG Taking Saw [place] Taking Verapamil HCl Taking Ciclopirox Olamine 0.77 % Cream 1 application Externally Twice a dayNot-Taking/PRNInsulin Lantus SoloStar Medication List reviewed and reconciled with the patientNot-Taking/PRN Insulin Not-Taking/PRN Lantus SoloStar Medication List reviewed and reconciled with the patient * Allergies:?N.K.D.A.yes[Shabnam ko Verified] Objective: * Vitals:?Ht: 0cj85jz, Wt:210, BMI:30.13, Shoe size: 10-10.5N, BS: 113, [...] mellitus with diabetic peripheral angiopathy without gangrene?Procedure: 62102-NGSZ SKIN LESIONS, 2 TO 4 3.?Tinea unguium?Procedure: 83169-EQDNRHB NAIL, 6 OR MORE * Procedures:?Debride Nail 6-10:?Nail debridement?Performance of this nail treatment by a nonprofessional would put this patients foot and overall health at risk. Therefore, nail debridement was performed extensively to reduce/remove overall nail length, girth, thickness, subungual debris, and necrotic tissue, by manual and/or electrical means through the use of a nail nipper and/or dremel-type slab grinder, to a more viable healthy nail plate or bed tissue 6-10. Silver nitrate used for any petechial bleeding as necessary. Definitive antifungal treatment options have been reviewed and discussed with the patient. The patient chooses, no pharmaceutical tx (74188)?.?Keratoma Treatment:?Parring or Cutting of Benign Hyperkeratotic Lesion(s)?28519 (2-4 Lesions) - The Benign hyperkeratotic lesions, as described above were pared, and/or cut utilizing a sterile #15 blade, tissue nippers, and/or dremel, Q8.? * Procedure Codes:?94348 DEBRI DE NAIL, 6 OR MORE, Modifiers: XS 36712 TRIM SKIN LESIONS, 2 TO 4, Modifiers: [...] Provider:?Calixto Pal DPM Date:?2023 Generated for Oswaldo rose/Alia/Bogdanitting on:?07/20/2024 11:04 AM EST History and Physical [...]
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
--- NOTE | 2024-07-20 11:27 | ED.GENADULT ---
HPI - General Adult General Chief complaint: Recheck/Abnormal Lab/Rx Stated complaint: high bs Time Seen by Provider: 07/20/24 12:44 Source: patient, family and old records reviewed Mode of arrival: ambulatory Limitations: no limitations History of Present Illness ED Provider: LOUANN MERCADO narrative: 68 yo male with PMH of HTN, HLD, IDDM uses a pump, prior VA but notes cath was clean 7 years ago and does not elicit a myocarditis infection - he has not had any cough, chest pain, sore throat, dyspnea. Yesterday he felt unwell and vomited x 4 hours but no abdominal pain or diarrhea. His sugars keep running high despite changing his pump and not eating. He has no urinary symptoms and has no fevers. He states he came back after sugars ran high he feels weak and just not well with poor PO intake. MD complaint: malaise, hyperglycemia Onset (ago): day(s) (yesterday) Radiation: non-radiation Severity: moderate Relieving factors: rest Exacerbating factors: movement Associated symptoms: loss of appetite, malaise and weakness Treatments prior to arrival: none Related Data Allergies Allergy/AdvReac Type Severity Reaction Status Date / Time No Known Allergies Allergy Verified 07/20/24 11:29 Review of Systems Review of Systems: Constitutional : No Weight loss, No Fever, No Chills, pos fatigue ENT/Mouth : No sore throat, No Rhinorrhea Eyes: No Swelling, No Redness Cardiovascular : No Chest Pain, No SOB, No Edema Respiratory : No Cough, No Sputum, No Wheezing Gastrointestinal : Positive Nausea, Positive Vomiting, no Diarrhea, no abdominal Pain, No Hematochezia, No Melena Genitourinary : No Dysuria, No Urinary Frequency, No Hematuria, No Urgency Musculoskeletal : No joint pain, No Myalgias, No Joint Swelling Skin : No Skin Lesions, No rash Neuro : pos Weakness, No Numbness, No Dizziness, No Headache All other systems reviewed and are negative. [facility] Past Medical History Attestation statement: The following information was validated with the patient. Source: old records reviewed Medical History Diabetes type 2 Social History Social History (Updated 07/20/24 @ 13:21 by Pinky Roes DO) Alcohol intake: current Alcohol intake frequency: holidays/special occasions only Alcohol type: beer and wine Patient Tobacco Use Status: Never used Tobacco Advance Directives: No Advance Directives Information Provided: Yes Do you have a plan to hurt others: No Plan Physical Exam ED Vital Signs: Vital Signs - 24 hr 07/20/24 11:27 07/20/24 13:56 Temperature 96.9 F 97.1 F Pulse Rate 86 83 Respiratory Rate 18 16 Blood Pressure 126/48 L 122/48 L Pulse Oximetry 96 98 Oxygen Delivery Method Room Air Room Air BMI result Body Mass Index 31.0 Appearance: Alert. Oriented X3. No acute distress. I removed insulin pumps Eyes: Pupils equal, round and reactive to light. ENT: Pharynx normal. Neck: Normal inspection. Neck supple. CVS: Normal heart rate and rhythm. Pulses normal. Respiratory: No respiratory distress. Breath sounds normal. Abdomen: Soft and non-tender. Skin: Skin warm and dry. pale skin color. Normal skin turgor. Extremities: No lower extremity edema. No calf ttp Neuro: Oriented X 3. No motor deficit. No sensory deficit. Course Course Course Narrative: This is an RME: Additional HPI, ROS, PE not included below will be deferred to primary provider. RME assessment and note performed by: Ivett Ferreira PA-C This is a 75-kbvb-kda-male, with a hx of diabetes, who presents to the ER with complaints of hyperglycemia. Reports some nausea and fatigue. He vomited yesterday 4 times. Reports that his blood glucose level was 515 this am. He was seen last night for same. Sees endocrinology through [facility], unsure who it is. He does have an insulin pump. Plan: Labs, UA, CXR, viral swabs Reevaluation(s) Reevaluation #1: call to cardiology reviewed heparin and EKG - Micheal recommends transfer for NSTEMI no active chest pain call to [facility] for transfer 110pm Reevaluation #2: Dr. Valdes declines transfer for cardiac cath at this time given medical issues and Cr 2.0 no cath today or tomorrow unless acute change occures, they have no strict medical beds available for transfer. message sent to update Dr. Burton 125pm Medications Administered Generic Name Dose Route Start Last Admin Trade Name Freq PRN Reason Stop Dose Admin Heparin Sodium/Sodium Chloride 25,000 unit in 250 mls @ 0 mls/hr 07/20/24 13:15 07/20/24 14:15 Heparin Sodium,Porcine/1/2ns IVCONT 10.21 units/kg/hr .Q0M BRIGETTE 10 mls/hr Administration Protocol Per Protocol Discontinued Medications Generic Name Dose Route Start Last Admin Trade Name Lin PRN Reason Stop Dose Admin Aspirin 81 mg 07/20/24 13:03 07/20/24 13:52 Aspirin 81 Mg Tab.Chew PO 07/20/24 13:04 81 mg ONCE ONE Administration Ceftriaxone Sodium 1 gm 07/20/24 12:54 07/20/24 13:51 Ceftriaxone Sodium 1 Gm Vial IVPUSH 07/20/24 12:55 1 gm ONCE ONE Administration Heparin Sodium (Porcine) 4,000 unit 07/20/24 13:02 07/20/24 13:48 Heparin Sodium,Porcine 5,000 Unit/Ml Vial IVPUSH 07/20/24 13:03 4,000 unit ONCE ONE Administration Insulin Human Regular 10 unit 07/20/24 13:40 07/20/24 13:47 Insulin Regular, Human 100 Unit/Ml 10 Ml Vial IVPUSH 07/20/24 13:41 10 unit ONCE ONE Administration Medical Decision Making Medical Decision Making MDM Narrative: 68 yo male with PMH of HTN, HLD, IDDM uses a pump, prior VA but notes cath was clean 7 years ago now here with recurrent elevated BS, dehydration, episode of vomiting yesterday now with NSTEMI but no symptoms and no WALE on EKG, MAKENNA, elevated WBC count at this time he has no signs of CHF and appears dehydrated - will start on fluids, he has no CP/SOB to suggest ACS though could be silent in IDDM and has no risk factors for VTE. He will get labs, IV insulin - no gap and normal HCO3 and pH doubt DKA, heparin started for NSTEMI along with aspirin - will need admission and cardiology consult, I did order cultures and lactic given his WBC count of 15 though history gives no localizing area and empiric dose of ceftriaxone Differential Diagnosis Differential Diagnoses: The differential diagnosis associated with the presentation includes NSTEMI, infection, dehydration Admission/Observation Consideration of admission/observation: Escalation of care including admission/observation considered admit for further management Consult Healthcare Provider Management of the patient was discussed with: Hospitalist and [employer] Lab Data MDM Lab Attestation statement: I reviewed the patient's lab results. 07/20/24 11:59 07/20/24 11:59 Labs: Lab Results 07/20/24 07/20/24 07/20/24 Range/Units 11:59 12:04 13:12 WBC 15.2 H (4.8-10.8) X10*3/uL RBC 4.00 L (4.60-5.80) X10*6/uL Hgb 12.6 L (14.0-18.0) g/dl Hct 36.8 L (42.0-52.0) % MCV 92.0 (80.0-98.0) fL MCH 31.5 (27.0-33.0) pg MCHC 34.2 (31.0-36.0) g/dl RDW 14.1 (11.0-16.0) % Plt Count 318 (160-400) X10*3/uL MPV 9.4 (9.4-12.4) fL Immature Gran % (Auto) 0.5 H (0.0-0.4) % Neut % (Auto) 88.7 H (45-73) % Lymph % (Auto) 4.7 L (20-40) % [place] % (Auto) 5.8 (2-11) % Eos % (Auto) 0.0 (0-4) % Baso % (Auto) 0.3 (0-2) % Lymph # (Auto) 0.7 L (1.2-4.9) X10*3/uL [place] # (Auto) 0.9 (0.1-1.2) X10*3/uL Eos # (Auto) 0.0 (0.0-0.4) X10*3/uL Baso # (Auto) 0.1 (0.0-0.2) X10*3/uL Abs Immat Gran (auto) 0.07 H (0.00-0.03) X10*3/uL Absolute Neuts (auto) 13.5 H (2.0-8.3) x10*3/uL Absolute Nucleated RBC 0.000 (0.0-0.012) X10*3/uL Nucleated RBC % (auto) 0.0 (0.0-0.2) /100WBC PT 13.0 H (10.9-12.4) SEC INR 1.1 (0.9-1.1) APTT 25.5 L (26.0-36.8) SEC aPTT Heparin Protocol (53-77.9) SEC VBG pH 7.37 (7.32-7.43) VBG pCO2 36 mmHg VBG pO2 72 mmHg VBG HCO3 21 L (22-26) mmol/L VBG O2 Saturation 95.0 % VBG Base Excess -3.5 mmol/L Sodium 136 (135-145) mmol/L Potassium 3.9 (3.3-5.1) mmol/L Chloride 100 (96-108) mmol/L Carbon Dioxide 20 L (22-29) mmol/L Anion Gap 20 (12-20) BUN 43 H (9-16) mg/dL Creatinine 2.01 H (0.5-1.4) mg/dL Estim Creat Clear Calc 41.1 Estimated GFR 33 POC Glucose (60-115) mg/dL Random Glucose 514 H* (60-115) mg/dL Lactic Acid 2.2 H* (0.5-2.0) mmol/L Calcium 8.4 (8.4-10.2) mg/dL Magnesium 2.2 (1.6-2.6) mg/dL Total Bilirubin 1.3 H (0.0-1.0) mg/dL Direct Bilirubin 0.4 (0.0-0.5) mg/dL AST 40 H (5-37) U/L ALT 30 (0-40) U/L Alkaline Phosphatase 66 (39-117) U/L Total Creatine Kinase 316 H (38-174) U/L Troponin I High Sens 630.3 H* D 818.7 H* (<3.5-35.0) ng/L B-Natriuretic Peptide 818 H (<100) pg/mL Total Protein 6.3 L (6.5-8.0) g/dL Albumin 3.5 (3.5-5.0) g/dL Lipase 8 (8-78) U/L Beta-Hydroxybutyrate 3.00 H (0.02-0.27) mmol/L Influenza Type A (PCR) NEGATIVE (Negative) Influenza Type B (PCR) NEGATIVE (Negative) RSV RNA Qual (PCR) NEGATIVE (Negative) SARS-CoV-2 RNA (RT-PCR) NEGATIVE (Negative) Blood Type Antibody Screen 07/20/24 07/20/24 Range/Units 13:22 13:39 WBC (4.8-10.8) X10*3/uL RBC (4.60-5.80) X10*6/uL Hgb (14.0-18.0) g/dl Hct (42.0-52.0) % MCV (80.0-98.0) fL MCH (27.0-33.0) pg MCHC (31.0-36.0) g/dl RDW (11.0-16.0) % Plt Count (160-400) X10*3/uL MPV (9.4-12.4) fL Immature Gran % (Auto) (0.0-0.4) % Neut % (Auto) (45-73) % Lymph % (Auto) (20-40) % [place] % (Auto) (2-11) % Eos % (Auto) (0-4) % Baso % (Auto) (0-2) % Lymph # (Auto) (1.2-4.9) X10*3/uL [place] # (Auto) (0.1-1.2) X10*3/uL Eos # (Auto) (0.0-0.4) X10*3/uL Baso # (Auto) (0.0-0.2) X10*3/uL Abs Immat Gran (auto) (0.00-0.03) X10*3/uL Absolute Neuts (auto) (2.0-8.3) x10*3/uL Absolute Nucleated RBC (0.0-0.012) X10*3/uL Nucleated RBC % (auto) (0.0-0.2) /100WBC PT (10.9-12.4) SEC INR (0.9-1.1) APTT (26.0-36.8) SEC aPTT Heparin Protocol 28.7 L (53-77.9) SEC VBG pH (7.32-7.43) VBG pCO2 mmHg VBG pO2 mmHg VBG HCO3 (22-26) mmol/L VBG O2 Saturation % VBG Base Excess mmol/L Sodium (135-145) mmol/L Potassium (3.3-5.1) mmol/L Chloride (96-108) mmol/L Carbon Dioxide (22-29) mmol/L Anion Gap (12-20) BUN (9-16) mg/dL Creatinine (0.5-1.4) mg/dL Estim Creat Clear Calc Estimated GFR POC Glucose 431 H* (60-115) mg/dL Random Glucose (60-115) mg/dL Lactic Acid (0.5-2.0) mmol/L Calcium (8.4-10.2) mg/dL Magnesium (1.6-2.6) mg/dL Total Bilirubin (0.0-1.0) mg/dL Direct Bilirubin (0.0-0.5) mg/dL AST (5-37) U/L ALT (0-40) U/L Alkaline Phosphatase (39-117) U/L Total Creatine Kinase (38-174) U/L Troponin I High Sens (<3.5-35.0) ng/L B-Natriuretic Peptide (<100) pg/mL Total Protein (6.5-8.0) g/dL Albumin (3.5-5.0) g/dL Lipase (8-78) U/L Beta-Hydroxybutyrate (0.02-0.27) mmol/L Influenza Type A (PCR) (Negative) Influenza Type B (PCR) (Negative) RSV RNA Qual (PCR) (Negative) SARS-CoV-2 RNA (RT-PCR) (Negative) Blood Type O Negative Antibody Screen NEGATIVE Independent Interpretation I performed an independent interpretation of an: EKG and Plain X-Ray (no pneumonia) Interpretation: Rate: 86 Rhythm: NSR [place]: normal Normal P waves. Normal [place]. Normal QRS complex. ST T wave : no WALE, slight ST depressions in inf and lateral leads qTC: 476 prior studies: similar findings on old but today more pronounced The study has been interpreted contemporaneously by me. . Radiology Impression Discussion of test interpretation with radiology: I have reviewed the radiologist's reading. Independent Historian Clinical information obtained from an independent historian. History obtained from or confirmed by: Spouse External Record Review External record reviewed: Inpatient record and Outpatient record Critical Care Time Critical Care Time Critical Care Time: Yes Total Critical Care Time: 60 Attestation: medical consults, review of records, IV insulin, IV heparin, repeat labs I attest to this time spent taking care of the patient Discharge Plan Discharge Clinical Impression: MAKENNA (acute kidney injury), Acute hyperglycemia, Non-ST elevation VA (NSTEMI) Patient Disposition: Admitted As Inpatient Print Language: Slovenian
[2024-07-20 12:05] LABS: MANUAL DIFF FLAG NO
[2024-07-20 12:08] LABS: Basophils Absolute Auto 0.1 X10*3/uL (0.0-0.2); Basophils Percent Auto 0.3 % (0-2); Hematocrit 36.8 % (42.0-52.0); Hemoglobin 12.6 g/dl (14.0-18.0); Imm Gran Abs Auto 0.07 X10*3/uL (0.00-0.03); Imm Gran Pct Auto 0.5 % (0.0-0.4); Lymphocytes Absolute Auto 0.7 X10*3/uL (1.2-4.9); Lymphocytes Percent Auto 4.7 % (20-40); Mean Corpuscular HGB Conc 34.2 g/dl (31.0-36.0); Mean Corpuscular Hemoglobin 31.5 pg (27.0-33.0); Mean Platelet Volume 9.4 fL (9.4-12.4); Monocytes Absolute Auto 0.9 X10*3/uL (0.1-1.2); Monocytes Percent Auto 5.8 % (2-11); Neutrophils Absolute Auto 13.5 x10*3/uL (2.0-8.3); Neutrophils Percent Auto 88.7 % (45-73); Platelet Count 318 X10*3/uL (160-400); Red Cell Distribution Width 14.1 % (11.0-16.0); Venous Blood Gas Refer to POC result; White Blood Count 15.2 X10*3/uL (4.8-10.8)
[2024-07-20 12:09] LABS: VBG Base Excess -3.5 mmol/L; VBG HCO3 21 mmol/L (22-26); VBG pCO2 36 mmHg; VBG pH 7.37 (7.32-7.43); VBG pO2 72 mmHg
[2024-07-20 12:31] LABS: Albumin Level 3.5 g/dL (3.5-5.0); Anion Gap 20 (12-20); Aspartate Amino Transferase 40 U/L (5-37); Bilirubin Direct 0.4 mg/dL (0.0-0.5); Bilirubin Total 1.3 mg/dL (0.0-1.0); Blood Urea Nitrogen 43 mg/dL (9-16); Calcium 8.4 mg/dL (8.4-10.2); Carbon Dioxide 20 mmol/L (22-29); Chloride 100 mmol/L (96-108); Creatinine Clr Calc Pharmacy 41.1; Estimated Glomerular Filt Rate 33; Lipase 8 U/L (8-78); Magnesium 2.2 mg/dL (1.6-2.6); Potassium 3.9 mmol/L (3.3-5.1); Sodium 136 mmol/L (135-145); Total Protein 6.3 g/dL (6.5-8.0)
--- NOTE | 2024-07-20 12:32 | ECG_ITS ---
Test Reason : elevated troponin Blood Pressure : / mmHG Vent. Rate : 086 BPM Atrial Rate : 086 BPM P-R Int : 184 ms QRS Dur : 084 ms QT Int : 398 ms P-R-T Axes : 078 056 079 degrees QTc Int : 476 ms Normal sinus rhythm ST depression inferior and lateral leads Abnormal ECG When compared with ECG of 04-JUL-2023 19:33, ST depression slightly more prominent Referred By: Ivett Ferreira Electronically Signed By:HANDY BROWN
[2024-07-20 12:33] LABS: Alanine Aminotransferase 30 U/L (0-40); Alkaline Phosphatase 66 U/L (39-117); Glucose Random 514 mg/dL (60-115); Troponin-I High Sensitivity 630.3 ng/L (<3.5-35.0)
[2024-07-20 12:45] LABS: Influenza A PCR NEGATIVE (Negative); Influenza B PCR NEGATIVE (Negative); Resp Syncy Virus RNA Qual PCR NEGATIVE (Negative); SARS COV2 PCR INHOUSE NEGATIVE (Negative)
[2024-07-20 13:28] LABS: INTERNATIONAL NORM RATIO 1.1 (0.9-1.1)
[2024-07-20 13:30] LABS: Partial Thromboplastin Time 25.5 SEC (26.0-36.8)
[2024-07-20 13:39] LABS: Lactic Acid 2.2 mmol/L (0.5-2.0)
[2024-07-20 13:41] LABS: B Type Natriuretic Peptide 818 pg/mL (<100)
[2024-07-20 13:44] LABS: Glucose, Whole Blood 431 mg/dL (60-115)
[2024-07-20] MEDS: Insulin Regular, Human 100 UNIT/ML 10 ML VIAL 10 UNIT IVPUSH (13:47)
[2024-07-20] MEDS: Heparin Sodium,Porcine 5,000 UNIT/ML VIAL 4000 UNIT IVPUSH (13:48)
[2024-07-20 13:49] LABS: Troponin-I High Sensitivity 818.7 ng/L (<3.5-35.0)
[2024-07-20] MEDS: cefTRIAXone sodium 1 GM VIAL IVPUSH (13:51)
[2024-07-20] MEDS: Aspirin 81 MG TAB.CHEW PO (13:52)
[2024-07-20 13:53] LABS: PTT Heparin Drip 28.7 SEC (53-77.9)
[2024-07-20] MEDS: Heparin Sodium,Porcine/1/2NS 25,000 UNIT/250 ML IV.SOLN 10 UNIT IVCONT (14:15)
[2024-07-20] MEDS: Lactated Ringers 500 ML 999 ML IV (14:26)
--- NOTE | 2024-07-20 15:16 | PHA.MEDREC ---
Addendum entered by Florinda Spaulding [facility] 07/20/24 16:45: Dr. Dorado was made aware that pt removed his insulin pump (dose is 125 units daily) before coming to the ED. Addendum entered by Florinda Spaulding [facility] 07/20/24 16:29: Med rec was reviewed by [facility]. Addendum entered by Galilea Foley 07/20/24 15:24: Patient states he fills his Insulin for his pump through [facility]. Original Note: Pharmacy Consult ? Medication Reconciliation Pharmacy has completed the medication reconciliation. Spoke to patient to confirm med list. Patient confirmed all his medications. Patient says he still takes Fluoxetine 20 mg, last filled 03/06/24 for 90 days and Tamsulosin 0.4 mg, last filled 03/06/24 for 90 days. Patient says he is on an insulin pump( T-string) prior to coming to the ER, however he was instructed to remove pump and hospital will provide his insulin. Patient states his daily pump dose is 125 units.
[2024-07-20 15:17] LABS: Reflex Lactate? Lactic Acid Added
--- NOTE | 2024-07-20 15:18 | PM.IMHP ---
History of Present Illness Date of Service: 07/20/24 Chief Complaint: elevated blood sugars The patient is a 68-year-old male with a past medical history of type 1 diabetes on insulin pump, CAD status post MT 7 years ago without stenting, hypertension and hyperlipidemia, BPH who presents to the emergency room for his 2nd visit in about 12 hours. The patient reports that on the day prior to his hospitalization he was able to tell that he had elevated blood sugars. He had some episodes of vomiting and presented to the ED. At that time he was treated symptomatically and once improved he was discharged home. He reports that at home he was doing okay for several hours but then his symptoms began again and he returned to the emergency room. In the ED, the patient was found to significantly elevated blood sugars over 500. He was found to have acute kidney injury with serum creatinine about 2. His anion gap and bicarb are not indicative of DKA, however he does have some ketonemia. He has been since treated with intravenous fluids and several doses of IV insulin. His sugars have started to improve however further workup in the emergency room reveals significantly elevated troponins. Initial troponins about 600 with repeat at 800. The patient denies any chest pain whatsoever. His EKG does not indicate acute ischemic changes. The ED provider discussed the case with the travograph operator at [facility] who recommended transfer to [facility]. His transfer has been declined at this time by [facility], citing acute kidney injury and non active ischemic symptoms. He has been since started on IV heparin drip been given aspirin and now will be admitted to the hospital for further care. The patient is seen and examined in the emergency room around 15:00. The patient's spouse is bedside. He reports feeling better compared to when he first presented. Again he denies any cardiac symptoms. However, he does endorse that he had basically an identical scenario about 7 years ago with elevated blood sugars and nausea with vomiting. At that time he was diagnosed with NSTEMI and ultimately had a cardiac catheterization. He states that no blockage was found and hence no stent was placed. Since then the patient does follow up with the travograph operator. He denies any long-term anginal symptoms. Review of Systems Review of Systems: Negative except HPI/interval history. [facility] Medical History (Updated 07/20/24 @ 15:28 by Vipul Dorado MD) BPH (benign prostatic hyperplasia) CAD (coronary artery disease) Diabetes type 2 Social History (Updated 07/20/24 @ 13:21 by Pinky Rose DO) Alcohol intake: current Alcohol intake frequency: holidays/special occasions only Alcohol type: beer and wine Patient Tobacco Use Status: Never used Tobacco Advance Directives: No Advance Directives Information Provided: Yes Do you have a plan to hurt others: No Plan Meds Allergies Allergy/AdvReac Type Severity Reaction Status Date / Time No Known Allergies Allergy Verified 07/20/24 11:29 Active Medications: Current Medications Heparin Sodium (Porcine) (Heparin Sodium,Porcine 5,000 Unit/Ml Vial) 3,900 unit 40 unit/kg (3900 unit) IVPUSH PROTOCOL BOLUS PRN; Protocol PRN Reason: 40 unit/kg - Heparin Protocol Heparin Sodium (Porcine) (Heparin Sodium,Porcine 5,000 Unit/Ml Vial) 7,800 unit 80 unit/kg (7800 unit) IVPUSH PROTOCOL BOLUS PRN; Protocol PRN Reason: 80 unit/kg - Heparin Protocol Heparin Sodium/Sodium Chloride (Heparin Sodium,Porcine/1/2ns) 25,000 unit in 250 mls @ 0 mls/hr IVCONT .Q0M [facility]; Protocol Last Admin: 07/20/24 14:15 Dose: 10.21 units/kg/hr, 10 mls/hr Lactated Ringer's (Lr) 1,000 mls @ 100 mls/hr IVCONT .Q10H [facility] Home Medications ?Medication ?Instructions ?Recorded ?Confirmed ?Last Taken ?Type ascorbic acid (vitamin C) 500 mg 500 mg PO DAILY 07/20/24 07/20/24 07/20/24 History tablet (Vitamin C) aspirin 81 mg tablet,delayed 81 mg PO DAILY 07/20/24 07/20/24 07/20/24 History release fluoxetine 20 mg capsule 20 mg PO DAILY 07/20/24 07/20/24 07/20/24 History labetalol 300 mg tablet 300 mg PO BID 07/20/24 07/20/24 07/20/24 History lisinopril 40 mg tablet 40 mg PO DAILY 07/20/24 07/20/24 07/20/24 History ghngiocrcqli-ngqzsdds-uvowdk 1 tab PO DAILY 07/20/24 07/20/24 07/20/24 History tablet (Multivitamin 50 Plus tablet) rosuvastatin 20 mg tablet 20 mg PO DAILY 07/20/24 07/20/24 07/20/24 History saw palmetto 160 mg capsule 160 mg PO DAILY 07/20/24 07/20/24 07/20/24 History tamsulosin 0.4 mg capsule 0.4 mg PO BEDTIME 07/20/24 07/20/24 07/20/24 History Physical Exam Vital Signs and Narrative: Vital Signs: Last Vital Signs Temp 97.1 F 07/20/24 13:56 Pulse 83 07/20/24 13:56 Resp 16 07/20/24 13:56 BP 122/48 L 07/20/24 13:56 Pulse Ox 98 07/20/24 13:56 O2 Del Method Room Air 07/20/24 13:56 BMI result Body Mass Index 31.0 Const: Other: Constitutional - Awake and Alert, No apparent distress Eyes - PERRLA, EOMI Cardiovascular - S1S2, RRR, No edema Respiratory - Normal lung expansion, Normal respiratory effort, No respiratory distress, CTA bilaterally Gastrointestinal - NT / ND; +BS; No rebound or guarding - No CVA tenderness Extremities - no calf tenderness bilaterally, b/l LE pitting edema Musculoskeletal - Normal inspection, normal ROM Skin - Warm/Dry Neurological - Alert & oriented x3, No focal deficit Psychological - Appropriate affect Results Labs 07/20/24 11:59 07/20/24 11:59 Labs: Laboratory Results - last 24 hr 07/20/24 07/20/24 07/20/24 11:59 12:04 13:12 MCV 92.0 MCH 31.5 MCHC 34.2 RDW 14.1 Plt Count 318 MPV 9.4 Immature Gran % (Auto) 0.5 H Neut % (Auto) 88.7 H Lymph % (Auto) 4.7 L [place] % (Auto) 5.8 Eos % (Auto) 0.0 Baso % (Auto) 0.3 Lymph # (Auto) 0.7 L [place] # (Auto) 0.9 Eos # (Auto) 0.0 Baso # (Auto) 0.1 Abs Immat Gran (auto) 0.07 H Absolute Neuts (auto) 13.5 H Absolute Nucleated RBC 0.000 Nucleated RBC % (auto) 0.0 PT 13.0 H INR 1.1 APTT 25.5 L aPTT Heparin Protocol VBG pH 7.37 VBG pCO2 36 VBG pO2 72 VBG HCO3 21 L VBG O2 Saturation 95.0 VBG Base Excess -3.5 Anion Gap 20 Estim Creat Clear Calc 41.1 Estimated GFR 33 POC Glucose Random Glucose 514 H* Lactic Acid 2.2 H* Calcium 8.4 Magnesium 2.2 Total Bilirubin 1.3 H Direct Bilirubin 0.4 AST 40 H ALT 30 Alkaline Phosphatase 66 Total Creatine Kinase 316 H Troponin I High Sens 630.3 H* D 818.7 H* B-Natriuretic Peptide 818 H Total Protein 6.3 L Albumin 3.5 Lipase 8 Beta-Hydroxybutyrate 3.00 H Influenza Type A (PCR) NEGATIVE Influenza Type B (PCR) NEGATIVE RSV RNA Qual (PCR) NEGATIVE SARS-CoV-2 RNA (RT-PCR) NEGATIVE Blood Type Antibody Screen 07/20/24 07/20/24 13:22 13:39 MCV MCH MCHC RDW Plt Count MPV Immature Gran % (Auto) Neut % (Auto) Lymph % (Auto) [place] % (Auto) Eos % (Auto) Baso % (Auto) Lymph # (Auto) [place] # (Auto) Eos # (Auto) Baso # (Auto) Abs Immat Gran (auto) Absolute Neuts (auto) Absolute Nucleated RBC Nucleated RBC % (auto) PT INR APTT aPTT Heparin Protocol 28.7 L VBG pH VBG pCO2 VBG pO2 VBG HCO3 VBG O2 Saturation VBG Base Excess Anion Gap Estim Creat Clear Calc Estimated GFR POC Glucose 431 H* Random Glucose Lactic Acid Calcium Magnesium Total Bilirubin Direct Bilirubin AST ALT Alkaline Phosphatase Total Creatine Kinase Troponin I High Sens B-Natriuretic Peptide Total Protein Albumin Lipase Beta-Hydroxybutyrate Influenza Type A (PCR) Influenza Type B (PCR) RSV RNA Qual (PCR) SARS-CoV-2 RNA (RT-PCR) Blood Type O Negative Antibody Screen NEGATIVE Imaging Radiologist's Impressions: Impressions Chest X-Ray 07/20/24 11:31 IMPRESSION: No active pulmonary disease. Hyperaerated lung parenchyma. No change. Electronically signed by: Nick Salmeron MD 07/20/2024 01:18 PM [facility] Assessment and Plan (1) Non-ST elevation MT (NSTEMI): Status: Acute (2) MAKENNA (acute kidney injury): Status: Acute Plan 68-year-old male who was a type 1 diabetic on insulin pump, CAD status post MT and last angio without obstructive coronary disease, BPH, hypertension, hyperlipidemia who presents to [facility] with hyperglycemia. His workup in the ED has revealed NSTEMI and acute kidney injury. He will be admitted for further workup and treatment. 1. NSTEMI And a diabetic, does not have a typical presenting symptoms, nonetheless troponins are significantly elevated IV heparin drip, aspirin, statin Cardiology consult and 2D echo 2. Acute kidney injury Likely related to significant hyperglycemia and poor oral intake. Question if also 1. Is also contributing. Will give an additional 1 L of fluid at 100 cc an hour (judicious use due to NSTEMI, elevated BNP and concern over putting into fluid overload.) 3. Hyperglycemia due to uncontrolled diabetes mellitus Typically the patient states his blood sugars are largely controlled. Over the last 24 hours have been significantly elevated. Patient does endorse that he had pancakes on the day prior to hospitalization which were not sugar free For now hold his insulin pump and use sliding scale Patient does have some beta hydroxybutyrate and hence will require close monitoring, clinically does not appear to be in DKA 4. HTN on labetalol 300mg BID at home; will switch to metoprolol 25mg BID hold lisinopril due to MAKENNA 5. HLD statin 6. Leukocytosis suspect reactive; no foci of infection identified yet -- await UA monitor Full Code DVT pptx - IV heparin drip Patient with acute kidney injury as well as NSTEMI requiring IV heparin drip, therefore expected to require at least 2 midnights in the hospital for management and therefore will be admitted inpatient. Quality Stroke Does the patient have a stroke diagnosis?: No VTE Prior VTE?: No VTE Risk Level:: Medical - moderate - high VTE Device Contraindication: N/A - Device Ordered VTE Drug Contraindication: N/A - Med Ordered
[2024-07-20 15:46] LABS: Glucose, Whole Blood 381 mg/dL (60-115)
[2024-07-20 15:56] LABS: ~Lactic Acid-LAB USE ONLY 1.8 mmol/L (0.5-2.0)
[2024-07-20] MEDS: Lactated Ringers 1,000 ML 100 ML IVCONT (16:14)
[2024-07-20] MEDS: Atorvastatin Calcium 80 MG TABLET PO (16:58)
[2024-07-20 17:36] LABS: Glucose, Whole Blood 386 mg/dL (60-115)
[2024-07-20] MEDS: Insulin Lispro 100 UNIT/ML 3 ML VIAL SUBCUT ×2 (17:50→21:20)
[2024-07-20] MEDS: 0.9 % Sodium Chloride Flush 3 ML SYRINGE IVFLUSH ×2 (17:51→21:01)
[2024-07-20 20:33] LABS: PTT Heparin Drip 44.5 SEC (53-77.9)
[2024-07-20] MEDS: Heparin Sodium,Porcine 5,000 UNIT/ML VIAL 3900 UNIT IVPUSH (20:50)
[2024-07-20] MEDS: Tamsulosin HCL 0.4 MG CAPSULE PO (20:58)
[2024-07-20] MEDS: Metoprolol Tartrate 25 MG TABLET PO (20:58)
[2024-07-20 21:05] LABS: Glucose, Whole Blood 434 mg/dL (60-115)
[2024-07-20] MEDS: Insulin Glargine,Hum.rec.anlog 100 UNIT/ML 10 ML VIAL 15 UNIT SUBCUT (21:19)
[2024-07-20] MEDS: Insulin Regular, Human 100 UNIT/ML 10 ML VIAL IVPUSH (21:22)
[2024-07-20 22:34] LABS: Glucose, Whole Blood 422 mg/dL (60-115)
[2024-07-21] VITALS (9 sets, daily range): BP systolic 130–169; BP diastolic 51–73; PULSE 74–86; RESP 15–20; TEMP 36.4–37.2; O2SAT 94–96
[2024-07-21 03:03] LABS: Glucose, Whole Blood 341 mg/dL (60-115)
[2024-07-21 06:16] LABS: Hemoglobin 11.8 g/dl (14.0-18.0); Mean Corpuscular HGB Conc 34.7 g/dl (31.0-36.0); Mean Corpuscular Hemoglobin 31.1 pg (27.0-33.0); Mean Corpuscular Volume 89.7 fL (80.0-98.0); Mean Platelet Volume 9.6 fL (9.4-12.4); Platelet Count 319 X10*3/uL (160-400); Red Blood Count 3.79 X10*6/uL (4.60-5.80); Red Cell Distribution Width 14.4 % (11.0-16.0); White Blood Count 13.8 X10*3/uL (4.8-10.8)
[2024-07-21 06:34] LABS: INTERNATIONAL NORM RATIO 1.2 (0.9-1.1); Prothrombin Time 13.4 SEC (10.9-12.4)
--- NOTE | 2024-07-21 07:00 | CA_ITS ---
Transthoracic Echocardiogram Patient (Last, First, Middle): Facundo Amado P Gender: Male Date of : 1955 Age: 68 Procedure Date: 07/21/2024 Procedure Type: Transthoracic Echocardiogram Location: [facility] Height: 177.8 cm Weight: 97.52 kg BSA: 2.15 m2 Heart Rate: bpm BP: 121 / [address] Magistrate: Referring MD: Vipul Dorado MD Symptoms: NSTEMI Study Quality: Fair ECG Rhythm: Sinus Conclusions: - The left ventricular systolic function is hyperdynamic. The visually estimated ejection fraction is >70%. - Evidence suggests grade II (moderate) diastolic dysfunction. - No obvious valvular pathology seen on this study. Findings Procedure Information Contrast agent, definity, is being given per protocol without apparent complications. Left Ventricle Normal left ventricular cavity size. There is normal left ventricular wall thickness. The left ventricular systolic function is hyperdynamic. The visually estimated ejection fraction is >70%. There is no evidence of regional wall motion abnormalities. There is no dynamic left ventricular outflow tract obstruction. Evidence suggests grade II (moderate) diastolic dysfunction. Resting intra-ventricular gradient 9mmHg; no significant increase with valsalva. Right Ventricle Moderately increased right ventricular cavity size. There is normal right ventricular systolic function. Atria The left atrium is moderately dilated. The right atrium is normal in size. Aortic Valve The aortic valve was not well visualized. There is no aortic valve stenosis. There is no aortic valve regurgitation. Mitral Valve There is mild mitral annular calcification. There is no mitral valve regurgitation. There is no mitral valve stenosis. Pulmonic Valve The pulmonic valve is likely normal. Tricuspid Valve There is mild tricuspid valve regurgitation. Mild pulmonary hypertension is present. Great Vessels The sinuses of valsalva and sino tubular ridge are normal in size. Small plaque is seen in the sino tubular ridge. Venous The inferior vena cava is normal in size and collapses greater than 50% with inspiration. Pericardium/Pleural There is no evidence of pericardial effusion. Prior Study Comparison No prior study available for comparison. Recommendations, Care & Conclusions No obvious valvular pathology seen on this study. Measurements 2D Linear Measurements IVSd: 0.99 0.6-0.9/0.6-1.0 cm LVIDd: 4.05 3.9-5.3/4.2-5.9 cm LVIDd Index: 1.88 2.4-3.2/2.2-3.1 cm/m2 LVIDs: 2.13 2.0-3.6 cm LVPWd: 1.00 0.7-1.1 cm LA Diam: 3.80 2.7-3.8/3.0-4.0 cm LAIDs Index: 1.77 1.5-2.3 cm/m2 LV Mass: 159.96 67-162/88-224 g LV Mass Index: 74.40 43-95/49-115 g/m2 LVOT Diam: 2.00 3.0+(-)1.3 cm Mitral Valve MV Pk E: 1.39 MV PK A: 0.66 MV Decel Time: 211.00 E/A: 2.10 E'Lateral: 7.62 E'Medial: 5.66 E/E' Med: 24.60 E/E' Lat: 18.20 PHT: 62.00 MVA PHT: 3.55 Decel Jefferson: 6.62 Aortic Valve AoV Pk Chip: 1.59 AoV Mn Chip: 1.11 AoV VTI: 0.34 AoV Pk Grad: 10.00 Aov Mn Grad: 6.00 BENJAMIN Cont.VTI: 2.82 LVOT LVOT Pk Chip: 1.49 LVOT Mn Chip: 1.07 LVOT VTI: 0.31 LVOT Pk Grad: 9.00 LVOT Mn Grad: 5.00 LVOT Diam: 2.00 LVOT Area: 3.14 Diastolic Function MV Pk E: 1.39 MV Pk A: 0.66 E/A: 2.10 E'Medial: 5.66 E/E' Med: 24.60 E' Laterial: 7.62 E/E' Lat: 18.20 Tricuspid Valve TR Pk Chip: 2.90 TR Pk Grad: 34.00 RA Press: 3.00 RVSP: 37.00 Updated in Other Vendor System with Status of Final Vishal Burton MD electronically signed on 07/21/2024 11:53:49 AM with status of Final
[2024-07-21 07:17] LABS: Anion Gap 11 (12-20); Blood Urea Nitrogen 53 mg/dL (9-16); Calcium 8.2 mg/dL (8.4-10.2); Carbon Dioxide 25 mmol/L (22-29); Chloride 101 mmol/L (96-108); Estimated Glomerular Filt Rate 38; Glucose Random 364 mg/dL (60-115); Sodium 133 mmol/L (135-145)
[2024-07-21 07:27] LABS: Glucose, Whole Blood 333 mg/dL (60-115)
[2024-07-21] MEDS: Insulin Lispro 100 UNIT/ML 3 ML VIAL SUBCUT ×4 (08:54→20:50)
[2024-07-21] MEDS: Metoprolol Tartrate 25 MG TABLET PO ×2 (08:55→20:35)
[2024-07-21] MEDS: Aspirin Enteric Coated 81 MG TABLET.DR PO (08:55)
[2024-07-21] MEDS: Atorvastatin Calcium 80 MG TABLET PO (08:55)
[2024-07-21] MEDS: FLUoxetine HCl 20 MG CAPSULE PO (08:55)
--- NOTE | 2024-07-21 09:22 | MHC.CM.PN ---
IMM 07/21. Pt self-care, lives at home with his /HCP who will transport him home at discharge. HCP on file and verified. PCP: Dr. Blayne Warren
--- NOTE | 2024-07-21 09:24 | PM.CNCAR ---
History of Present Illness History of Present Illness Date of Service: 07/21/24 Chief complaint: high blood sugars Narrative: This is a cardiology consultation regarding elevated troponins. It seems that he goes to Cardiology at [place]. He has undergone cardiac catheterization in 2015 and that showed no significant disease. He has a history of type 1 diabetes on insulin pump and he states he has had this since age of 5 or so. Current admissions because of high blood sugars as well as some vomiting. In this context, noted to have elevated troponins. He also had elevated creatinine. He has been admitted for further care. From the cardiac standpoint, denies any anginal-type symptoms or in fact anything cardiac sounding. Review of Systems Review of Systems: Yes all other systems are reviewed and are negative Constitutional: Constitutional: Reports as per HPI and Reports no additional constitutional complaints Eyes: Eyes: Reports as per HPI and Denies no additional eye complaints ENT: Denies system reviewed and no additional complaints, except as documented and Reports as per HPI Cardiovascular: Cardiovascular: Reports as per HPI, Reports no additional cardiovascular complaints, Denies acrocyanosis, Denies cool extremities, Denies chest pain, Denies leg edema, Denies lightheadedness, Denies palpitations and Denies dyspnea Respiratory: Respiratory: Reports as per HPI, Denies no additional respiratory complaints and Denies dyspnea Gastrointestinal: Gastrointestinal: Reports as per HPI and Denies no additional gastrointestinal complaints Genitourinary: Genitourinary: Reports no additional male genitourinary complaints and Reports as per HPI Musculoskeletal: Musculoskeletal: Reports no additional musculoskeletal complaints and Reports as per HPI Integumentary/Breasts: Skin/Breast: Reports system reviewed and no additional complaints, except as docu Neurologic: Reports system reviewed and no additional complaints, except as documented and Reports as per HPI Psychiatric: Psychiatric: Reports no additional psychiatric complaints and Reports as per HPI Endocrine: Endocrine: Reports no additional endocrine complaints, Reports as per HPI and Denies palpitations Hematologic/Lymphatic: Hematologic/Lymphatic: Reports no additional hematologic/lymphatic complaints and Reports as per HPI Allergic/Immunologic: Allergic/Immunologic: Reports no additional allergic/immunologic complaints and Reports as per HPI [facility] Past Medical History Medical History BPH (benign prostatic hyperplasia) CAD (coronary artery disease) Diabetes type 2 Family History Pertinent family history: No pertinent family history Social History Social History (Updated 07/20/24 @ 13:21 by Pinky Rose DO) Household Members: Spouse and Family Housing: [facility] Do you presently have visiting nurse or other home services: Yes Alcohol intake: current Alcohol intake frequency: holidays/special occasions only Alcohol type: beer and wine Patient Tobacco Use Status: Never used Tobacco Second Hand Smoke Exposure: No service: No Meds Allergies Allergy/AdvReac Type Severity Reaction Status Date / Time No Known Allergies Allergy Verified 07/20/24 11:29 Active Medications: Current Medications Acetaminophen (Acetaminophen 325 Mg Tablet) 650 mg PO Q6H PRN PRN Reason: Pain, Mild (Pain Scale 1-3), fever or headache Aspirin (Aspirin Enteric Coated 81 Mg Tablet.Dr) 81 mg PO DAILY [facility] Last Admin: 07/21/24 08:55 Dose: 81 mg Atorvastatin Calcium (Atorvastatin Calcium 80 Mg Tablet) 80 mg PO DAILY [facility] Last Admin: 07/21/24 08:55 Dose: 80 mg Calcium Carbonate (Calcium Carbonate 750 Mg Tab.Chew) 750 mg PO Q4H PRN PRN Reason: Heartburn Fluoxetine HCl (Fluoxetine Hcl 20 Mg Capsule) 20 mg PO DAILY [facility] Last Admin: 07/21/24 08:55 Dose: 20 mg Heparin Sodium (Porcine) (Heparin Sodium,Porcine 5,000 Unit/Ml Vial) 3,900 unit 40 unit/kg (3900 unit) IVPUSH PROTOCOL BOLUS PRN; Protocol PRN Reason: 40 unit/kg - Heparin Protocol Last Admin: 07/20/24 20:50 Dose: 3,900 unit Heparin Sodium (Porcine) (Heparin Sodium,Porcine 5,000 Unit/Ml Vial) 7,800 unit 80 unit/kg (7800 unit) IVPUSH PROTOCOL BOLUS PRN; Protocol PRN Reason: 80 unit/kg - Heparin Protocol Heparin Sodium/Sodium Chloride (Heparin Sodium,Porcine/1/2ns) 25,000 unit in 250 mls @ 0 mls/hr IVCONT .Q0M [facility]; Protocol Last Titration: 07/21/24 04:08 Dose: 10.21 units/kg/hr, 10 mls/hr Insulin Human Lispro (Insulin Lispro 100 Unit/Ml 3 Ml Vial) 0 unit SUBCUT QIDACHS [facility]; Protocol Last Admin: 07/21/24 08:54 Dose: 8 unit Insulin Human Lispro (Insulin Lispro 100 Unit/Ml 3 Ml Vial) 10 unit SUBCUT QIDACHS [facility] Magnesium Hydroxide (Milk Of Magnesia 30 Ml Oral.Susp) 30 ml PO DAILY PRN PRN Reason: Constipation Melatonin (Melatonin 3 Mg Tablet) 6 mg PO BEDTIME PRN PRN Reason: Insomnia Metoprolol Tartrate (Metoprolol Tartrate 25 Mg Tablet) 25 mg PO BID [facility]; Protocol Last Admin: 07/21/24 08:55 Dose: 25 mg Ondansetron HCl (Ondansetron Hcl 4 Mg/2 Ml Vial) 4 mg IVPUSH Q8H PRN PRN Reason: Nausea and Vomiting Sodium Chloride (0.9 % Sodium Chloride Flush 3 Ml Syringe) 3 ml IVFLUSH QSHIFT [facility] Last Admin: 07/21/24 08:55 Dose: Not Given Tamsulosin HCl (Tamsulosin Hcl 0.4 Mg Capsule) 0.4 mg PO BEDTIME [facility] Last Admin: 07/20/24 20:58 Dose: 0.4 mg Home Medications ?Medication ?Instructions ?Recorded ?Confirmed ?Last Taken ?Type ascorbic acid (vitamin C) 500 mg 500 mg PO DAILY 07/20/24 07/20/24 07/20/24 History tablet (Vitamin C) aspirin 81 mg tablet,delayed 81 mg PO DAILY 07/20/24 07/20/24 07/20/24 History release fluoxetine 20 mg capsule 20 mg PO DAILY 07/20/24 07/20/24 07/20/24 History insulin aspart U-100 100 unit/mL See Protocol subcut TIDAC PRN 07/20/24 07/20/24 Unknown History subcutaneous solution (Novolog Hyperglycemia U-100 Insulin aspart) labetalol 300 mg tablet 300 mg PO BID 07/20/24 07/20/24 07/20/24 History lisinopril 40 mg tablet 40 mg PO DAILY 07/20/24 07/20/24 07/20/24 History gmkeagxrgggs-cmkluqrq-yxssew 1 tab PO DAILY 07/20/24 07/20/24 07/20/24 History tablet (Multivitamin 50 Plus tablet) rosuvastatin 20 mg tablet 20 mg PO DAILY 07/20/24 07/20/24 07/20/24 History saw palmetto 160 mg capsule 160 mg PO DAILY 07/20/24 07/20/24 07/20/24 History tamsulosin 0.4 mg capsule 0.4 mg PO BEDTIME 07/20/24 07/20/24 07/20/24 History Physical Exam Vital Signs: Vital Signs: Last Vital Signs Temp 97.7 F 07/21/24 08:00 Pulse 79 07/21/24 08:00 Resp 20 07/21/24 08:00 BP 153/64 H 07/21/24 08:00 Pulse Ox 94 07/21/24 08:00 O2 Del Method Room Air 07/21/24 08:00 BMI result Body Mass Index 31.0 Const: General: comfortable and no acute distress Orientation/consciousness: patient oriented x3 HEENT: Other: Unremarkable Head: Yes normal to inspection Neck: Neck: Yes normal visual inspection Chest: Chest palpation & inspection: normal inspection of the chest Resp: Auscultation: clear to auscultation bilaterally Cardio: Palpation: normal PMI Heart sounds: S1 normal heart sound present, S2 normal heart sound present, no gallops, no murmurs and no rubs GI: Palpation (GI): Soft to palpation Back/Spine/Pelvis: Other: unremarkable Skin: General skin exam: no rashes or lesions noted Neuro: General: patient oriented x3 Extrem: General: Yes normal to inspection Psych: Mental Status: mental status grossly normal Objective Labs and Meds 07/21/24 05:52 07/21/24 05:52 Lab results: Laboratory Results - last 24 hr 07/20/24 07/20/24 07/20/24 11:59 12:04 13:12 WBC 15.2 H RBC 4.00 L Hgb 12.6 L Hct 36.8 L MCV 92.0 MCH 31.5 MCHC 34.2 RDW 14.1 Plt Count 318 MPV 9.4 Immature Gran % (Auto) 0.5 H Neut % (Auto) 88.7 H Lymph % (Auto) 4.7 L Meagher % (Auto) 5.8 Eos % (Auto) 0.0 Baso % (Auto) 0.3 Lymph # (Auto) 0.7 L Meagher # (Auto) 0.9 Eos # (Auto) 0.0 Baso # (Auto) 0.1 Abs Immat Gran (auto) 0.07 H Absolute Neuts (auto) 13.5 H Absolute Nucleated RBC 0.000 Nucleated RBC % (auto) 0.0 PT 13.0 H INR 1.1 APTT 25.5 L aPTT Heparin Protocol VBG pH 7.37 VBG pCO2 36 VBG pO2 72 VBG HCO3 21 L VBG O2 Saturation 95.0 VBG Base Excess -3.5 Sodium 136 Potassium 3.9 Chloride 100 Carbon Dioxide 20 L Anion Gap 20 BUN 43 H Creatinine 2.01 H Estim Creat Clear Calc 41.1 Estimated GFR 33 POC Glucose Random Glucose 514 H* Lactic Acid 2.2 H* Lactic Acid F/U @ 2Hr Calcium 8.4 Magnesium 2.2 Total Bilirubin 1.3 H Direct Bilirubin 0.4 AST 40 H ALT 30 Alkaline Phosphatase 66 Total Creatine Kinase 316 H Troponin I High Sens 630.3 H* D 818.7 H* B-Natriuretic Peptide 818 H Total Protein 6.3 L Albumin 3.5 Lipase 8 Beta-Hydroxybutyrate 3.00 H Influenza Type A (PCR) NEGATIVE Influenza Type B (PCR) NEGATIVE RSV RNA Qual (PCR) NEGATIVE SARS-CoV-2 RNA (RT-PCR) NEGATIVE Blood Type Antibody Screen 07/20/24 07/20/24 07/20/24 13:22 13:39 15:11 WBC RBC Hgb Hct MCV MCH MCHC RDW Plt Count MPV Immature Gran % (Auto) Neut % (Auto) Lymph % (Auto) Meagher % (Auto) Eos % (Auto) Baso % (Auto) Lymph # (Auto) Meagher # (Auto) Eos # (Auto) Baso # (Auto) Abs Immat Gran (auto) Absolute Neuts (auto) Absolute Nucleated RBC Nucleated RBC % (auto) PT INR APTT aPTT Heparin Protocol 28.7 L VBG pH VBG pCO2 VBG pO2 VBG HCO3 VBG O2 Saturation VBG Base Excess Sodium Potassium Chloride Carbon Dioxide Anion Gap BUN Creatinine Estim Creat Clear Calc Estimated GFR POC Glucose 431 H* 381 H* Random Glucose Lactic Acid Lactic Acid F/U @ 2Hr Calcium Magnesium Total Bilirubin Direct Bilirubin AST ALT Alkaline Phosphatase Total Creatine Kinase Troponin I High Sens B-Natriuretic Peptide Total Protein Albumin Lipase Beta-Hydroxybutyrate Influenza Type A (PCR) Influenza Type B (PCR) RSV RNA Qual (PCR) SARS-CoV-2 RNA (RT-PCR) Blood Type O Negative Antibody Screen NEGATIVE 07/20/24 07/20/24 07/20/24 15:36 17:31 20:08 WBC RBC Hgb Hct MCV MCH MCHC RDW Plt Count MPV Immature Gran % (Auto) Neut % (Auto) Lymph % (Auto) Meagher % (Auto) Eos % (Auto) Baso % (Auto) Lymph # (Auto) Meagher # (Auto) Eos # (Auto) Baso # (Auto) Abs Immat Gran (auto) Absolute Neuts (auto) Absolute Nucleated RBC Nucleated RBC % (auto) PT INR APTT aPTT Heparin Protocol 44.5 L D VBG pH VBG pCO2 VBG pO2 VBG HCO3 VBG O2 Saturation VBG Base Excess Sodium Potassium Chloride Carbon Dioxide Anion Gap BUN Creatinine Estim Creat Clear Calc Estimated GFR POC Glucose 386 H* Random Glucose Lactic Acid Lactic Acid F/U @ 2Hr 1.8 Calcium Magnesium Total Bilirubin Direct Bilirubin AST ALT Alkaline Phosphatase Total Creatine Kinase Troponin I High Sens B-Natriuretic Peptide Total Protein Albumin Lipase Beta-Hydroxybutyrate Influenza Type A (PCR) Influenza Type B (PCR) RSV RNA Qual (PCR) SARS-CoV-2 RNA (RT-PCR) Blood Type Antibody Screen 07/20/24 07/20/24 07/21/24 20:12 22:29 02:54 WBC RBC Hgb Hct MCV MCH MCHC RDW Plt Count MPV Immature Gran % (Auto) Neut % (Auto) Lymph % (Auto) Meagher % (Auto) Eos % (Auto) Baso % (Auto) Lymph # (Auto) Meagher # (Auto) Eos # (Auto) Baso # (Auto) Abs Immat Gran (auto) Absolute Neuts (auto) Absolute Nucleated RBC Nucleated RBC % (auto) PT INR APTT aPTT Heparin Protocol VBG pH VBG pCO2 VBG pO2 VBG HCO3 VBG O2 Saturation VBG Base Excess Sodium Potassium Chloride Carbon Dioxide Anion Gap BUN Creatinine Estim Creat Clear Calc Estimated GFR POC Glucose 434 H* 422 H* 341 H Random Glucose Lactic Acid Lactic Acid F/U @ 2Hr Calcium Magnesium Total Bilirubin Direct Bilirubin AST ALT Alkaline Phosphatase Total Creatine Kinase Troponin I High Sens B-Natriuretic Peptide Total Protein Albumin Lipase Beta-Hydroxybutyrate Influenza Type A (PCR) Influenza Type B (PCR) RSV RNA Qual (PCR) SARS-CoV-2 RNA (RT-PCR) Blood Type Antibody Screen 07/21/24 07/21/24 07/21/24 03:18 05:52 07:14 WBC 13.8 H RBC 3.79 L Hgb 11.8 L Hct 34.0 L MCV 89.7 MCH 31.1 MCHC 34.7 RDW 14.4 Plt Count 319 MPV 9.6 Immature Gran % (Auto) Neut % (Auto) Lymph % (Auto) Meagher % (Auto) Eos % (Auto) Baso % (Auto) Lymph # (Auto) Meagher # (Auto) Eos # (Auto) Baso # (Auto) Abs Immat Gran (auto) Absolute Neuts (auto) Absolute Nucleated RBC 0.000 Nucleated RBC % (auto) 0.0 PT 13.4 H INR 1.2 H APTT aPTT Heparin Protocol 86.0 H D VBG pH VBG pCO2 VBG pO2 VBG HCO3 VBG O2 Saturation VBG Base Excess Sodium 133 L Potassium 4.0 Chloride 101 Carbon Dioxide 25 Anion Gap 11 L BUN 53 H Creatinine 1.80 H Estim Creat Clear Calc 46.0 Estimated GFR 38 POC Glucose 333 H Random Glucose 364 H* Lactic Acid Lactic Acid F/U @ 2Hr Calcium 8.2 L Magnesium Total Bilirubin Direct Bilirubin AST ALT Alkaline Phosphatase Total Creatine Kinase Troponin I High Sens B-Natriuretic Peptide Total Protein Albumin Lipase Beta-Hydroxybutyrate Influenza Type A (PCR) Influenza Type B (PCR) RSV RNA Qual (PCR) SARS-CoV-2 RNA (RT-PCR) Blood Type Antibody Screen ECG Interpretation: EKG with underlying sinus rhythm at 86/Min; inferior as well as anterolateral ST depression. A bit more prominent than in the past. Imaging Radiologist's impression: Impressions Chest X-Ray 07/20/24 11:31 IMPRESSION: No active pulmonary disease. Hyperaerated lung parenchyma. No change. Electronically signed by: Nick Salmeron MD 07/20/2024 01:18 PM [facility] Assessment and Plan (1) Non-ST elevation VT (NSTEMI): Status: Acute (2) Acute hyperglycemia: Status: Acute (3) MAKENNA (acute kidney injury): Status: Acute Plan Labs reviewed. Creatinine was 2 on arrival but currently 1.8. Previously, 1.2. Blood sugars in the 500s. Troponin levels are 630 and 818. Overall, type 2 NSTEMI, MAKENNA, uncontrolled diabetes. Hydration and treat the diabetes as appropriate. With regard to NSTEMI, IV heparin for 48 hours. Aspirin, statins. He does not have any angina at this time. Echocardiogram. Ischemic workup to be decided based on what he has recently had. 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 Procedures Date of Service Date of Service: 07/21/24
[2024-07-21 10:19] LABS: PTT Heparin Drip 56.9 SEC (53-77.9)
[2024-07-21 11:17] LABS: Glucose, Whole Blood 315 mg/dL (60-115)
--- NOTE | 2024-07-21 11:29 | HO.PM.IMPN ---
Subjective Subjective Date of Service: 07/21/24 Review of Systems Follow up NSTEMI, DM1 no pain or discomfort Physical Exam Vital Signs: Vital Signs: Last Vital Signs Temp 97.7 F 07/21/24 08:00 Pulse 79 07/21/24 10:00 Resp 20 07/21/24 08:00 BP 134/51 L 07/21/24 10:00 Pulse Ox 94 07/21/24 08:00 O2 Del Method Room Air 07/21/24 08:00 BMI result Body Mass Index 31.0 Appearing in no acute distress lung sounds are clear to auscultation heart regular rate rhythm, clear S1, S2 positive bowel sounds, abdomen is soft, nontender neuro patient is alert x3, no focal deficits Objective Data Active Medications Acetaminophen (Acetaminophen 325 Mg Tablet) 650 mg PO Q6H PRN PRN Reason: Pain, Mild (Pain Scale 1-3), fever or headache Aspirin (Aspirin Enteric Coated 81 Mg Tablet.) 81 mg PO DAILY [facility] Last Admin: 07/21/24 08:55 Dose: 81 mg Documented By: LUIS FELIPE Atorvastatin Calcium (Atorvastatin Calcium 80 Mg Tablet) 80 mg PO DAILY [facility] Last Admin: 07/21/24 08:55 Dose: 80 mg Documented By: LUIS FELIPE Calcium Carbonate (Calcium Carbonate 750 Mg Tab.Chew) 750 mg PO Q4H PRN PRN Reason: Heartburn Fluoxetine HCl (Fluoxetine Hcl 20 Mg Capsule) 20 mg PO DAILY [facility] Last Admin: 07/21/24 08:55 Dose: 20 mg Documented By: LUIS FELIPE Heparin Sodium (Porcine) (Heparin Sodium,Porcine 5,000 Unit/Ml Vial) 3,900 unit 40 unit/kg (3900 unit) IVPUSH PROTOCOL BOLUS PRN; Protocol PRN Reason: 40 unit/kg - Heparin Protocol Last Admin: 07/20/24 20:50 Dose: 3,900 unit Documented By: KEHINDE Heparin Sodium (Porcine) (Heparin Sodium,Porcine 5,000 Unit/Ml Vial) 7,800 unit 80 unit/kg (7800 unit) IVPUSH PROTOCOL BOLUS PRN; Protocol PRN Reason: 80 unit/kg - Heparin Protocol Heparin Sodium/Sodium Chloride (Heparin Sodium,Porcine/1/2ns) 25,000 unit in 250 mls @ 0 mls/hr IVCONT .Q0M [facility]; Protocol Last Titration: 07/21/24 10:46 Dose: 10.21 units/kg/hr, 10 mls/hr Documented By: LUIS FELIPE Co-signed By: JUDY Insulin Human Lispro (Insulin Lispro 100 Unit/Ml 3 Ml Vial) 0 unit SUBCUT QIDACHS [facility]; Protocol Last Admin: 07/21/24 08:54 Dose: 8 unit Documented By: LUIS FELIPE Insulin Human Lispro (Insulin Lispro 100 Unit/Ml 3 Ml Vial) [facility] Magnesium Hydroxide (Milk Of Magnesia 30 Ml Oral.Susp) 30 ml PO DAILY PRN PRN Reason: Constipation Melatonin (Melatonin 3 Mg Tablet) 6 mg PO BEDTIME PRN PRN Reason: Insomnia Metoprolol Tartrate (Metoprolol Tartrate 25 Mg Tablet) 25 mg PO BID [facility]; Protocol Last Admin: 07/21/24 08:55 Dose: 25 mg Documented By: LUIS FELIPE Ondansetron HCl (Ondansetron Hcl 4 Mg/2 Ml Vial) 4 mg IVPUSH Q8H PRN PRN Reason: Nausea and Vomiting Sodium Chloride (0.9 % Sodium Chloride Flush 3 Ml Syringe) 3 ml IVFLUSH QSHIFT [facility] Last Admin: 07/21/24 08:55 Dose: Not Given Documented By: LUIS FELIPE Non-Admin Reason: IV Running Tamsulosin HCl (Tamsulosin Hcl 0.4 Mg Capsule) 0.4 mg PO BEDTIME [facility] Last Admin: 07/20/24 20:58 Dose: 0.4 mg Documented By: KEHINDE Labs 07/21/24 05:52 07/21/24 05:52 Labs: Laboratory Results - last 24 hr 07/20/24 07/20/24 07/20/24 11:59 12:04 13:12 MCV 92.0 MCH 31.5 MCHC 34.2 RDW 14.1 Plt Count 318 MPV 9.4 Immature Gran % (Auto) 0.5 H Neut % (Auto) 88.7 H Lymph % (Auto) 4.7 L [place] % (Auto) 5.8 Eos % (Auto) 0.0 Baso % (Auto) 0.3 Lymph # (Auto) 0.7 L [place] # (Auto) 0.9 Eos # (Auto) 0.0 Baso # (Auto) 0.1 Abs Immat Gran (auto) 0.07 H Absolute Neuts (auto) 13.5 H Absolute Nucleated RBC 0.000 Nucleated RBC % (auto) 0.0 PT 13.0 H INR 1.1 APTT 25.5 L aPTT Heparin Protocol VBG pH 7.37 VBG pCO2 36 VBG pO2 72 VBG HCO3 21 L VBG O2 Saturation 95.0 VBG Base Excess -3.5 Anion Gap 20 Estim Creat Clear Calc 41.1 Estimated GFR 33 POC Glucose Random Glucose 514 H* Lactic Acid 2.2 H* Lactic Acid F/U @ 2Hr Calcium 8.4 Magnesium 2.2 Total Bilirubin 1.3 H Direct Bilirubin 0.4 AST 40 H ALT 30 Alkaline Phosphatase 66 Total Creatine Kinase 316 H Troponin I High Sens 630.3 H* D 818.7 H* B-Natriuretic Peptide 818 H Total Protein 6.3 L Albumin 3.5 Lipase 8 Beta-Hydroxybutyrate 3.00 H Influenza Type A (PCR) NEGATIVE Influenza Type B (PCR) NEGATIVE RSV RNA Qual (PCR) NEGATIVE SARS-CoV-2 RNA (RT-PCR) NEGATIVE Blood Type Antibody Screen 07/20/24 07/20/24 07/20/24 13:22 13:39 15:11 MCV MCH MCHC RDW Plt Count MPV Immature Gran % (Auto) Neut % (Auto) Lymph % (Auto) [place] % (Auto) Eos % (Auto) Baso % (Auto) Lymph # (Auto) [place] # (Auto) Eos # (Auto) Baso # (Auto) Abs Immat Gran (auto) Absolute Neuts (auto) Absolute Nucleated RBC Nucleated RBC % (auto) PT INR APTT aPTT Heparin Protocol 28.7 L VBG pH VBG pCO2 VBG pO2 VBG HCO3 VBG O2 Saturation VBG Base Excess Anion Gap Estim Creat Clear Calc Estimated GFR POC Glucose 431 H* 381 H* Random Glucose Lactic Acid Lactic Acid F/U @ 2Hr Calcium Magnesium Total Bilirubin Direct Bilirubin AST ALT Alkaline Phosphatase Total Creatine Kinase Troponin I High Sens B-Natriuretic Peptide Total Protein Albumin Lipase Beta-Hydroxybutyrate Influenza Type A (PCR) Influenza Type B (PCR) RSV RNA Qual (PCR) SARS-CoV-2 RNA (RT-PCR) Blood Type O Negative Antibody Screen NEGATIVE 07/20/24 07/20/24 07/20/24 15:36 17:31 20:08 MCV MCH MCHC RDW Plt Count MPV Immature Gran % (Auto) Neut % (Auto) Lymph % (Auto) [place] % (Auto) Eos % (Auto) Baso % (Auto) Lymph # (Auto) [place] # (Auto) Eos # (Auto) Baso # (Auto) Abs Immat Gran (auto) Absolute Neuts (auto) Absolute Nucleated RBC Nucleated RBC % (auto) PT INR APTT aPTT Heparin Protocol 44.5 L D VBG pH VBG pCO2 VBG pO2 VBG HCO3 VBG O2 Saturation VBG Base Excess Anion Gap Estim Creat Clear Calc Estimated GFR POC Glucose 386 H* Random Glucose Lactic Acid Lactic Acid F/U @ 2Hr 1.8 Calcium Magnesium Total Bilirubin Direct Bilirubin AST ALT Alkaline Phosphatase Total Creatine Kinase Troponin I High Sens B-Natriuretic Peptide Total Protein Albumin Lipase Beta-Hydroxybutyrate Influenza Type A (PCR) Influenza Type B (PCR) RSV RNA Qual (PCR) SARS-CoV-2 RNA (RT-PCR) Blood Type Antibody Screen 07/20/24 07/20/24 07/21/24 20:12 22:29 02:54 MCV MCH MCHC RDW Plt Count MPV Immature Gran % (Auto) Neut % (Auto) Lymph % (Auto) [place] % (Auto) Eos % (Auto) Baso % (Auto) Lymph # (Auto) [place] # (Auto) Eos # (Auto) Baso # (Auto) Abs Immat Gran (auto) Absolute Neuts (auto) Absolute Nucleated RBC Nucleated RBC % (auto) PT INR APTT aPTT Heparin Protocol VBG pH VBG pCO2 VBG pO2 VBG HCO3 VBG O2 Saturation VBG Base Excess Anion Gap Estim Creat Clear Calc Estimated GFR POC Glucose 434 H* 422 H* 341 H Random Glucose Lactic Acid Lactic Acid F/U @ 2Hr Calcium Magnesium Total Bilirubin Direct Bilirubin AST ALT Alkaline Phosphatase Total Creatine Kinase Troponin I High Sens B-Natriuretic Peptide Total Protein Albumin Lipase Beta-Hydroxybutyrate Influenza Type A (PCR) Influenza Type B (PCR) RSV RNA Qual (PCR) SARS-CoV-2 RNA (RT-PCR) Blood Type Antibody Screen 07/21/24 07/21/24 07/21/24 03:18 05:52 07:14 MCV 89.7 MCH 31.1 MCHC 34.7 RDW 14.4 Plt Count 319 MPV 9.6 Immature Gran % (Auto) Neut % (Auto) Lymph % (Auto) [place] % (Auto) Eos % (Auto) Baso % (Auto) Lymph # (Auto) [place] # (Auto) Eos # (Auto) Baso # (Auto) Abs Immat Gran (auto) Absolute Neuts (auto) Absolute Nucleated RBC 0.000 Nucleated RBC % (auto) 0.0 PT 13.4 H INR 1.2 H APTT aPTT Heparin Protocol 86.0 H D VBG pH VBG pCO2 VBG pO2 VBG HCO3 VBG O2 Saturation VBG Base Excess Anion Gap 11 L Estim Creat Clear Calc 46.0 Estimated GFR 38 POC Glucose 333 H Random Glucose 364 H* Lactic Acid Lactic Acid F/U @ 2Hr Calcium 8.2 L Magnesium Total Bilirubin Direct Bilirubin AST ALT Alkaline Phosphatase Total Creatine Kinase Troponin I High Sens B-Natriuretic Peptide Total Protein Albumin Lipase Beta-Hydroxybutyrate Influenza Type A (PCR) Influenza Type B (PCR) RSV RNA Qual (PCR) SARS-CoV-2 RNA (RT-PCR) Blood Type Antibody Screen 07/21/24 07/21/24 10:02 11:06 MCV MCH MCHC RDW Plt Count MPV Immature Gran % (Auto) Neut % (Auto) Lymph % (Auto) [place] % (Auto) Eos % (Auto) Baso % (Auto) Lymph # (Auto) [place] # (Auto) Eos # (Auto) Baso # (Auto) Abs Immat Gran (auto) Absolute Neuts (auto) Absolute Nucleated RBC Nucleated RBC % (auto) PT INR APTT aPTT Heparin Protocol 56.9 D VBG pH VBG pCO2 VBG pO2 VBG HCO3 VBG O2 Saturation VBG Base Excess Anion Gap Estim Creat Clear Calc Estimated GFR POC Glucose 315 H Random Glucose Lactic Acid Lactic Acid F/U @ 2Hr Calcium Magnesium Total Bilirubin Direct Bilirubin AST ALT Alkaline Phosphatase Total Creatine Kinase Troponin I High Sens B-Natriuretic Peptide Total Protein Albumin Lipase Beta-Hydroxybutyrate Influenza Type A (PCR) Influenza Type B (PCR) RSV RNA Qual (PCR) SARS-CoV-2 RNA (RT-PCR) Blood Type Antibody Screen Assessment and Plan (1) Non-ST elevation NM (NSTEMI): Status: Acute Plan 68-year-old male who was a type 1 diabetic on insulin pump, CAD status post NM and last angio without obstructive coronary disease, BPH, hypertension, hyperlipidemia who presents to [facility] ED with hyperglycemia. His workup in the ED has revealed NSTEMI and acute kidney injury. He will be admitted for further workup and treatment. NSTEMI does not have a typical presenting symptoms, nonetheless troponins are significantly elevated IV heparin drip, aspirin, statin Cardiology consult>continue current treatment 2D echo pending Acute kidney injury Likely related to significant hyperglycemia and poor oral intake. s/p IV fluids creat trending down Hyperglycemia due to uncontrolled diabetes mellitus Typically the patient states his blood sugars are largely controlled. elevated BHB but no obvious DKA Over the last 24 hours have been significantly elevated. Patient does endorse that he had pancakes on the day prior to hospitalization which were not sugar free For now hold his insulin pump and use sliding scale, mealtime insulin added HTN on labetalol 300mg BID at home, switch to metoprolol 25mg BID hold lisinopril due to MAKENNA HLD statin Leukocytosis suspect reactive Full Code DVT pptx - IV heparin drip Quality Stroke Does the patient have a stroke diagnosis?: No VTE Prior VTE?: No VTE Risk Level:: Medical - moderate - high VTE Device Contraindication: N/A - Device Ordered VTE Drug Contraindication: N/A - Med Ordered
[2024-07-21] MEDS: Insulin Lispro 100 UNIT/ML 3 ML VIAL 10 UNIT SUBCUT ×3 (12:35→20:49)
[2024-07-21 12:50] LABS: Anion Gap 12 (12-20); Blood Urea Nitrogen 49 mg/dL (9-16); Calcium 8.3 mg/dL (8.4-10.2); Carbon Dioxide 25 mmol/L (22-29); Chloride 102 mmol/L (96-108); Creatinine Clr Calc Pharmacy 54.2; Estimated Glomerular Filt Rate 45; Potassium 4.1 mmol/L (3.3-5.1); Sodium 135 mmol/L (135-145)
[2024-07-21 12:57] LABS: Glucose Random 359 mg/dL (60-115)
[2024-07-21] MEDS: Heparin Sodium,Porcine/1/2NS 25,000 UNIT/250 ML IV.SOLN 10 UNIT IVCONT (13:37)
[2024-07-21 16:46] LABS: Glucose, Whole Blood 254 mg/dL (60-115)
[2024-07-21 17:05] LABS: PTT Heparin Drip 46.5 SEC (53-77.9)
[2024-07-21] MEDS: Heparin Sodium,Porcine 5,000 UNIT/ML VIAL 3900 UNIT IVPUSH (17:18)
[2024-07-21] MEDS: Tamsulosin HCL 0.4 MG CAPSULE PO (20:35)
[2024-07-21] MEDS: Acetaminophen 325 MG TABLET 650 MG PO (20:37)
[2024-07-21 20:50] LABS: Glucose, Whole Blood 290 mg/dL (60-115)
[2024-07-21] MEDS: 0.9 % Sodium Chloride Flush 3 ML SYRINGE IVFLUSH (20:50)
[2024-07-21 23:59] LABS: PTT Heparin Drip 81.1 SEC (53-77.9)
[2024-07-22 03:05] VITALS: BP 160/65; PULSE 74; RESP 20; TEMP 36.4; O2SAT 94
[2024-07-22 06:41] LABS: PTT Heparin Drip 65.6 SEC (53-77.9)
[2024-07-22 07:15] VITALS: BP 155/70; PULSE 85; RESP 18; TEMP 36.7; O2SAT 94
[2024-07-22 07:16] LABS: Glucose, Whole Blood 403 mg/dL (60-115)
[2024-07-22] MEDS: Insulin Lispro 100 UNIT/ML 3 ML VIAL SUBCUT ×2 (07:58→11:46)
[2024-07-22] MEDS: Insulin Lispro 100 UNIT/ML 3 ML VIAL 10 UNIT SUBCUT (07:58)
[2024-07-22] MEDS: Insulin Glargine,Hum.rec.anlog 100 UNIT/ML 10 ML VIAL 15 UNIT SUBCUT (07:58)
[2024-07-22] MEDS: Aspirin Enteric Coated 81 MG TABLET.DR PO (07:59)
[2024-07-22] MEDS: FLUoxetine HCl 20 MG CAPSULE PO (07:59)
[2024-07-22] MEDS: 0.9 % Sodium Chloride Flush 3 ML SYRINGE IVFLUSH (07:59)
[2024-07-22] MEDS: Metoprolol Tartrate 25 MG TABLET PO (07:59)
[2024-07-22] MEDS: Atorvastatin Calcium 80 MG TABLET PO (07:59)
--- NOTE | 2024-07-22 09:44 | P.PNCA_ITS ---
Subjective Subjective Date of Service: 07/22/24 Interval history: Patient states he feels okay. He states he feels fine. No chest pains. Review of Systems Review of Systems Yes all other systems are reviewed and are negative Constitutional: Reports as per HPI and Reports no additional constitutional complaints Eyes: Reports as per HPI and Denies no additional eye complaints Denies system reviewed and no additional complaints, except as documented and Reports as per HPI Cardiovascular: Reports as per HPI, Reports no additional cardiovascular complaints, Denies acrocyanosis, Denies cool extremities, Denies chest pain, Denies leg edema, Denies lightheadedness, Denies palpitations and Denies dyspnea Respiratory: Reports as per HPI, Denies no additional respiratory complaints and Denies dyspnea Gastrointestinal: Reports as per HPI and Denies no additional gastrointestinal complaints Genitourinary: Reports no additional male genitourinary complaints and Reports as per HPI Musculoskeletal: Reports no additional musculoskeletal complaints and Reports as per HPI Skin/Breast: Reports system reviewed and no additional complaints, except as docu Reports system reviewed and no additional complaints, except as documented and Reports as per HPI Psychiatric: Reports no additional psychiatric complaints and Reports as per HPI Endocrine: Reports no additional endocrine complaints, Reports as per HPI and Denies palpitations Hematologic/Lymphatic: Reports no additional hematologic/lymphatic complaints and Reports as per HPI Allergic/Immunologic: Reports no additional allergic/immunologic complaints and Reports as per HPI Physical Exam Vital Signs: Last Vital Signs Temp 98.1 F 07/22/24 07:15 Pulse 85 07/22/24 07:15 Resp 18 07/22/24 07:15 BP 155/70 H 07/22/24 07:15 Pulse Ox 94 07/22/24 07:15 O2 Del Method Room Air 07/22/24 07:15 BMI result Body Mass Index 31.0 Const General: comfortable and no acute distress Orientation/consciousness: patient oriented x3 HEENT Other: Unremarkable Head: Yes normal to inspection Neck Neck: Yes normal visual inspection Chest Chest palpation & inspection: normal inspection of the chest Resp Auscultation: clear to auscultation bilaterally Cardio Palpation: normal PMI Heart sounds: S1 normal heart sound present, S2 normal heart sound present, no gallops, no murmurs and no rubs GI Palpation (GI): Soft to palpation Back/Spine/Pelvis Other: unremarkable Skin General skin exam: no rashes or lesions noted Neuro General: patient oriented x3 Extrem General: Yes normal to inspection Psych Mental Status: mental status grossly normal Objective Labs and Meds 07/21/24 05:52 07/21/24 12:18 Lab results: Laboratory Results - last 24 hr 07/21/24 07/21/24 07/21/24 10:02 11:06 12:18 aPTT Heparin Protocol 56.9 D Sodium 135 Potassium 4.1 Chloride 102 Carbon Dioxide 25 Anion Gap 12 BUN 49 H Creatinine 1.53 H Estim Creat Clear Calc 54.2 Estimated GFR 45 POC Glucose 315 H Random Glucose 359 H* Calcium 8.3 L 07/21/24 07/21/24 07/21/24 16:25 16:40 20:40 aPTT Heparin Protocol 46.5 L Sodium Potassium Chloride Carbon Dioxide Anion Gap BUN Creatinine Estim Creat Clear Calc Estimated GFR POC Glucose 254 H 290 H Random Glucose Calcium 07/21/24 07/22/24 07/22/24 23:34 06:22 07:13 aPTT Heparin Protocol 81.1 H D 65.6 Sodium Potassium Chloride Carbon Dioxide Anion Gap BUN Creatinine Estim Creat Clear Calc Estimated GFR POC Glucose 403 H* Random Glucose Calcium Progress Note: A&P Assessment and plan (1) Non-ST elevation [place] (NSTEMI): Status: Acute (2) Acute hyperglycemia: Status: Acute (3) MAKENNA (acute kidney injury): Status: Acute Plan Essentially, type 2 NSTEMI in the setting of uncontrolled diabetes. Also with MAKENNA but improving. Baseline creatinine is 1.2. Went up to 2 but most recently 1.5. Troponins peaked in the 800s. In the echocardiogram, no overt wall motion abnormalities. Discussed with Dr. Ruby; due to history of longstanding diabetes as well as vascular disease, preference would be to reassess the coronaries with the catheterization. Hence we will transfer him for a diagnostic catheterization. Recommend continuing IV fluids to improve renal function. Continue IV heparin for now. Aspirin. Statins. Accepted by [facility] for further care. Discussed with Alicia Aburto. Time Spent With Patient Time: Total time managing care of this patient today ____ minutes. Progress Note: Quality Stroke Does the patient have a stroke diagnosis?: No Procedures Date of Service Date of Service: 07/22/24
[2024-07-22 09:47] LABS: Anion Gap 12 (12-20); Blood Urea Nitrogen 27 mg/dL (9-16); Calcium 8.1 mg/dL (8.4-10.2); Carbon Dioxide 26 mmol/L (22-29); Chloride 106 mmol/L (96-108); Creatinine Clr Calc Pharmacy 88.2; Estimated Glomerular Filt Rate > 60; Potassium 3.6 mmol/L (3.3-5.1); Sodium 140 mmol/L (135-145)
[2024-07-22 09:53] LABS: Glucose Random 383 mg/dL (60-115)
[2024-07-22] MEDS: 0.9 % Sodium Chloride 1,000 ML 100 ML IVCONT (10:22)
--- NOTE | 2024-07-22 11:04 | PM.DS ---
DS: Providers Provider Date of Service: 07/22/24 Date of admission: 07/20/24 15:19 Date of discharge: 07/22/24 Primary care physician: Blayne Warren MD Consults: 07/20/24 15:20 Consult to Cardiology Routine Consulting Provider: [facility] Reason for consultation: nstemi DS: Diagnosis Discharge Diagnosis (1) Non-ST elevation [place] (NSTEMI): Status: Acute (2) Acute hyperglycemia: Status: Acute (3) MAKENNA (acute kidney injury): Status: Acute DS: Summary Hospital Course Hospital Course: History and physical as per admitting provider. The patient is a 68-year-old male with a past medical history of type 1 diabetes on insulin pump, CAD status post [place] 7 years ago without stenting, hypertension and hyperlipidemia, BPH who presents to the emergency room for his 2nd visit in about 12 hours. The patient reports that on the day prior to his hospitalization he was able to tell that he had elevated blood sugars. He had some episodes of vomiting and presented to the ED. At that time he was treated symptomatically and once improved he was discharged home. He reports that at home he was doing okay for several hours but then his symptoms began again and he returned to the emergency room. In the ED, the patient was found to significantly elevated blood sugars over 500. He was found to have acute kidney injury with serum creatinine about 2. His anion gap and bicarb are not indicative of DKA, however he does have some ketonemia. He has been since treated with intravenous fluids and several doses of IV insulin. His sugars have started to improve however further workup in the emergency room reveals significantly elevated troponins. Initial troponins about 600 with repeat at 800. The patient denies any chest pain whatsoever. His EKG does not indicate acute ischemic changes. The ED provider discussed the case with the django developer at [facility] who recommended transfer to [facility]. His transfer has been declined at this time by [facility], citing acute kidney injury and non active ischemic symptoms. He has been since started on IV heparin drip been given aspirin and now will be admitted to the hospital for further care. The patient is seen and examined in the emergency room around 15:00. The patient's spouse is bedside. He reports feeling better compared to when he first presented. Again he denies any cardiac symptoms. However, he does endorse that he had basically an identical scenario about 7 years ago with elevated blood sugars and nausea with vomiting. At that time he was diagnosed with NSTEMI and ultimately had a cardiac catheterization. He states that no blockage was found and hence no stent was placed. Since then the patient does follow up with the django developer. He denies any long-term anginal symptoms. 68-year-old man treated for NSTEMI, MAKENNA and hyperglycemia with a history of diabetes mellitus type 1. He is typically on an insulin pump but has been on sliding scale, mealtime insulin and Lantus added today. He did have an elevated beta hydroxybutyrate but no obvious DKA and was not treated with an insulin drip. His blood sugars have been significantly elevated. He does report he uses approximately 100 units of insulin a day and sometimes gives himself extra. While inpatient he has been receiving 80 units a day along with Lantus 15 units daily. He was also noted to have MAKENNA which was likely secondary to the significant hyperglycemia. This was treated with IV fluids and is now at baseline. His presenting symptoms for the NSTEMI were not typical however he reports that a has a history of NSTEMI and at that time also had severe hyperglycemia. He was started on IV heparin drip, aspirin, statin, beta-jose r. He was seen and evaluated by Cardiology who recommended transfer to [facility] for diagnostic cardiac catheterization. Echocardiogram showed hyperdynamic EF. Diabetes mellitus type 1. Difficult to control blood sugar as patient was off his pump. At this time patient is on lispro sliding scale, lispro 10 units with meals and at bedtime and Lantus 15 units daily. Plan should be to get patient back on his insulin pump soon as possible at discharge. He should likely be discharged on Lantus as well. Hypertension. On labetalol at home, switched to metoprolol, lisinopril held due to MAKENNA, transitioned to amlodipine. Reactive leukocytosis, no infectious source identified Time Attestation Discharge Coordination Time (in mins): 45 Quality: Safe Use of Opioids Does Pt have an Active Cancer Diagnosis on the Problem List?: No Quality: Stroke Does the patient have a stroke diagnosis?: No Physical Exam Vital Signs: Vital Signs: Last Vital Signs Temp 98.1 F 07/22/24 07:15 Pulse 85 07/22/24 07:15 Resp 18 07/22/24 07:15 BP 155/70 H 07/22/24 07:15 Pulse Ox 94 07/22/24 07:15 O2 Del Method Room Air 07/22/24 07:15 BMI result Body Mass Index 31.0 Appearing in no acute distress head is normocephalic atraumatic eyes pupils are PERRLA sclera is anicteric mouth throat mucous membranes are intact and moist neck is supple no lymphadenopathy, no JVD noted lung sounds are clear to auscultation heart regular rate rhythm, clear S1, S2 positive bowel sounds, abdomen is soft, nontender neuro patient is alert x3, no focal deficits DS: Data Data Completed and Pending Labs on day of discharge: Laboratory Results - last 24 hr 07/21/24 07/21/24 07/21/24 11:06 12:18 16:25 aPTT Heparin Protocol Sodium 135 Potassium 4.1 Chloride 102 Carbon Dioxide 25 Anion Gap 12 BUN 49 H Creatinine 1.53 H Estim Creat Clear Calc 54.2 Estimated GFR 45 POC Glucose 315 H 254 H Random Glucose 359 H* Calcium 8.3 L 07/21/24 07/21/24 07/21/24 16:40 20:40 23:34 aPTT Heparin Protocol 46.5 L 81.1 H D Sodium Potassium Chloride Carbon Dioxide Anion Gap BUN Creatinine Estim Creat Clear Calc Estimated GFR POC Glucose 290 H Random Glucose Calcium 07/22/24 07/22/24 07/22/24 06:22 07:13 09:22 aPTT Heparin Protocol 65.6 Sodium 140 Potassium 3.6 Chloride 106 Carbon Dioxide 26 Anion Gap 12 BUN 27 H Creatinine 0.94 Estim Creat Clear Calc 88.2 Estimated GFR > 60 POC Glucose 403 H* Random Glucose 383 H* Calcium 8.1 L Preliminary micro results at discharge 07/20/24 13:22 Blood Culture - Preliminary Blood - Venous No growth after 24 hours. 07/20/24 13:12 Blood Culture - Preliminary Blood - Venous No growth after 24 hours. Discharge Plan Discharge Anticipated Discharge Date/Time: 07/22/24 10:53 Patient Disposition: Xfer [facility] Hospital Discharge Diagnosis: NSTEMI Diabetes mellitus type 1 with hyperglycemia Referrals: Blayne Warren MD [Primary Care Provider] - 1 Week Discharge Medications: New insulin glargine [Lantus U-100 Insulin] 100 unit/mL Solution 15 unit subcut DAILY Qty: 10 0RF insulin lispro [Admelog U-100 Insulin lispro] 100 unit/mL Solution 10 unit subcut QIDACHS Qty: 10 0RF insulin lispro [Admelog U-100 Insulin lispro] 100 unit/mL Solution See [facility] Qty: 10 0RF Protocol: Insulin Correction Scale Less than or equal to 110 ---- Give (units): 0 111 to 150 Give (units): 0 151 to 200 Give (units): 2 201 to 250 Give (units): 4 251 to 300 Give (units): 6 301 to 350 Give (units): 8 Greater than 350 Give (units): 10 Call MD if Blood Glucose > : 350 heparin(porcine) in 0.45% NaCl 25,000 unit/250 mL Parenteral Solution 25,000 unit continuous IV infusion .Q0M Qty: 6000 0RF amlodipine 5 mg tablet 5 mg PO DAILY Qty: 30 0RF metoprolol tartrate 25 mg Tablet 25 mg PO BID Qty: 60 0RF Protocol: Hold for SBP/HR < HOLD for SBP < : 90 HOLD for HR < : 60 Continued tamsulosin 0.4 mg capsule 0.4 mg PO BEDTIME fluoxetine 20 mg capsule 20 mg PO DAILY rosuvastatin 20 mg tablet 20 mg PO DAILY aspirin 81 mg Tablet,Delayed Release (Dr/Ec) 81 mg PO DAILY ascorbic acid (vitamin C) [Vitamin C] 500 mg Tablet 500 mg PO DAILY saw palmetto 160 mg Capsule 160 mg PO DAILY Rx Instructions: give with food (meal/snack) Multivitamin 50 Plus Tablet 1 tab PO DAILY insulin aspart U-100 [Novolog U-100 Insulin aspart] 100 unit/mL solution See Protocol subcut TIDAC PRN (Reason: Hyperglycemia) Protocol: Insulin Correction Scale Less than or equal to 110 ---- Give (units): 0 111 to 150 Give (units): 0 151 to 200 Give (units): 2 201 to 250 Give (units): 4 251 to 300 Give (units): 6 301 to 350 Give (units): 8 Greater than 350 Give (units): 10 Call MD if Blood Glucose > : 350 Discontinued labetalol 300 mg tablet 300 mg PO BID lisinopril 40 mg tablet 40 mg PO DAILY Discharge Orders: Discharge Order (Routine); Ordered 07/22/24 Ordered By: Alicia Aburto Diet: Advance to usual diet Activity on Discharge: As tolerated Stand Alone Forms: Patient Portal Discharge page Print Language: Upper Sorbian Care Plan Goals: Transferred on IV heparin drip Health Concerns: NSTEMI Diabetes mellitus type 1 with hyperglycemia Plan of Treatment: Transfer to [facility] for diagnostic cardiac catheterization Assessment: See discharge summary
[2024-07-22 11:24] VITALS: BP 157/73; PULSE 82; RESP 20; TEMP 36.8; O2SAT 93
[2024-07-22 11:26] LABS: Glucose, Whole Blood 352 mg/dL (60-115)
[2024-07-22] MEDS: Insulin Lispro 100 UNIT/ML 3 ML VIAL 15 UNIT SUBCUT (11:46)
[2024-07-22] MEDS: Heparin Sodium,Porcine/1/2NS 25,000 UNIT/250 ML IV.SOLN 10 UNIT IVCONT (12:41)
[2024-07-22 13:37] LABS: PTT Heparin Drip 41.8 SEC (53-77.9)
[2024-07-22] MEDS: Heparin Sodium,Porcine 5,000 UNIT/ML VIAL 3900 UNIT IVPUSH (14:20)
[2024-07-22 15:09] VITALS: BP 156/89; PULSE 90; RESP 18; TEMP 36.4; O2SAT 96
--- NOTE | 2024-07-22 16:03 | MHC.CM.PN ---
Pt is being transferred to [facility].
[2024-07-22 16:20] LABS: Glucose, Whole Blood 140 mg/dL (60-115)
== END 2024-07-22 18:18 | disposition short-term general hospital (02) | DRG 637 ==
LOC: HO.ED 13:50 → HO.EDOVER 15:24 → HO.IMC 15:36
PROVIDERS: Physician Assistant Medical; Student in an Organized Health Care Education/Training Program; Admitting Provider Family Medicine; Emergency Provider Emergency Medicine; PCP Internal Medicine; Visit Provider Nurse Practitioner Acute Care
DX: E10.65 Type 1 diabetes mellitus with hyperglycemia (principal); I21.A1 Myocardial infarction type 2; N17.9 Acute kidney failure, unspecified; I25.10 Atherosclerotic heart disease of native coronary artery without angina pectoris; Z20.822 Contact with and (suspected) exposure to COVID-19; Z96.41 Presence of insulin pump (external) (internal); Z79.4 Long term (current) use of insulin; Z79.82 Long term (current) use of aspirin; Z79.899 Other long term (current) drug therapy; I10 Essential (primary) hypertension; E78.5 Hyperlipidemia, unspecified
CPT/HCPCS: 0241U; 36415; 71046; 80048; 80076; 82010; 82550; 82803; 82947; 83605; 83690; 83735; 83880; 84484; 85025; 85027; 85610; 85730; 86850; 86900; 86901; 87040; 93005; 93306; 99285; J0696; J1644; J7120; Q9957

== ENCOUNTER → 2024-07-20 11:31 | Outpatient (BNV) | payer MEDICARE, SELFPAY | PROVIDERS: Emergency Provider Emergency Medicine; PCP Internal Medicine; Visit Provider Radiology Diagnostic Radiology | DX: R05.9 Cough, unspecified (principal) | CPT/HCPCS: 71046 ==

== ENCOUNTER → 2024-07-20 12:32 | Outpatient (BNV) | payer MEDICARE, SELFPAY | PROVIDERS: Admitting Provider Family Medicine; Emergency Provider Emergency Medicine; PCP Internal Medicine; Visit Provider Internal Medicine | DX: R79.89 Other specified abnormal findings of blood chemistry (principal) | CPT/HCPCS: 93010 ==

== ENCOUNTER 2024-07-20 15:19 | Outpatient (BNV) | payer MEDICARE, OTHER, SELFPAY | END 2024-07-21 07:00 | PROVIDERS: Admitting Provider Family Medicine; Emergency Provider Emergency Medicine; PCP Internal Medicine; Visit Provider Internal Medicine | DX: I21.4 Non-ST elevation (NSTEMI) myocardial infarction (principal); I36.1 Nonrheumatic tricuspid (valve) insufficiency; I27.20 Pulmonary hypertension, unspecified | CPT/HCPCS: 93306 ==

== ENCOUNTER → 2024-07-20 15:19 | Outpatient (BNV) | payer MEDICARE, SELFPAY | PROVIDERS: Admitting Provider Family Medicine; Emergency Provider Emergency Medicine; PCP Internal Medicine; Visit Provider Family Medicine | DX: I21.4 Non-ST elevation (NSTEMI) myocardial infarction (principal); N17.9 Acute kidney failure, unspecified; E11.65 Type 2 diabetes mellitus with hyperglycemia; I10 Essential (primary) hypertension | CPT/HCPCS: 99223; 99232; 99239 ==

== ENCOUNTER → 2024-07-20 15:19 | Outpatient (BNV) | payer MEDICARE, SELFPAY | PROVIDERS: Admitting Provider Family Medicine; Emergency Provider Emergency Medicine; PCP Internal Medicine; Visit Provider Internal Medicine | DX: I21.4 Non-ST elevation (NSTEMI) myocardial infarction (principal); R73.9 Hyperglycemia, unspecified; N17.9 Acute kidney failure, unspecified | CPT/HCPCS: 99223 ==